=== PATIENT | male | born 1955 | race Caucasian/White ===

== ENCOUNTER 2018-09-27 12:23 | Inpatient (IN) | payer OTHER, SELFPAY ==
[2018-09-27] VITALS (16 sets, daily range): BP systolic 109–159; BP diastolic 69–102; PULSE 70–97; RESP 17–24; TEMP 36.3–36.8; O2SAT 84–95; BMI 35.2; BMI 34.2; BMI 34.3
--- NOTE | 2018-09-27 12:34 | EKG12_ITS ---
Test Reason : FLU LIKE SYMPTOMS Blood Pressure : / mmHG Vent. Rate : 091 BPM Atrial Rate : 091 BPM P-R Int : 138 ms QRS Dur : 092 ms QT Int : 394 ms P-R-T Axes : 048 036 052 degrees QTc Int : 484 ms Sinus rhythm with Premature atrial complexes with Aberrant conduction Low voltage QRS ST & T wave abnormality, consider anterior ischemia Prolonged QT Abnormal ECG Confirmed by FLORIN WATSON ([id number]), slot editor MICKEY HARMON ([id number]) on 09/30/2018 4:44:41 PM Referred By: ALLY Confirmed By:FLORIN WATSON
--- NOTE | 2018-09-27 12:35 | ED.VISSUMM ---
- ER Visit Summary Date of Service: 09/27/18 Chief Complaint: Shortness of breath, cough History of Present Illness: The patient is a 63 M who states that he has the flu. He states for the past 6 weeks he has not been feeling well. He has had a cough that is been nonproductive. He has been feeling short of breath. He has been taking clarithromycin and is almost done with this course and then was supposed to start cefuroxime. He denies fevers. He does feel weak overall. He is a non-smoker. He has no history of COPD. He does wear CPAP at night but does not wear home oxygen. He did get a flu shot this year. Physical Examination: Vital signs reviewed. His pulse ox was 87% on room air in triage. HEENT exam unremarkable. Heart is regular rate and rhythm without murmurs. Lungs are clear to auscultation. Abdomen is soft and nontender. Extremities reveal no edema. Skin exam normal. Neurologic exam normal. Test Results: EKG is normal sinus rhythm with a rate of 91. Multiple PVCs noted. Nonspecific ST and T wave changes noted. Chest x-ray reveals evidence of CHF. No infiltrates. Hemoglobin 16.9, glucose 160. Troponin normal. Emergency Department Course and Treatment: The patient was given an albuterol treatment. He was hypoxic on room air down to 84%. He has no history of any lung pathology. He does have CHF and takes Lasix. This is likely the cause of his issues. I will give him 1 dose of Lasix IV here. The case was discussed with the hospitalist for admission Treatment Plan: Admit to PCU for diuresis Disposition: Admit Impression: CHF exacerbation, hypoxia This note was generated with [employer] dictation software. It may contain incorrect words, spelling, and punctuation that were not noted in review of the chart prior to signing ED Disposition - Plan for ED Patient: Referrals: NOT,DEFINED [NON-STAFF] -
[2018-09-27] MEDS: Albuterol 2.5 MG/3 ML VIAL.NEB. INHALATION (12:42)
[2018-09-27 12:53] LABS: Absolute Lymphocyte Count 1.25 X10^3/ul (0.83-4.51); Absolute Neutrophil Count 3.3 X10^3/uL (2.0-7.7); Basophil# 0.02 X10^3/uL; Basophil% 0.4 % (0-1); Eosinophil# 0.18 X10^3/uL; Eosinophils% 3.4 % (0-5); Hematocrit 52.2 % (40-54); Hemoglobin 16.9 g/dl (13.0-16.5); Lymphocyte # 1.25 X10^3/ul (4.0); Lymphocyte % 23.5 % (19-41); Mean Corp Hgb Conc 32.4 g/gl (32-36); Mean Corpuscular Hgb 34.3 pg (27.0-32.0); Mean Corpuscular Volume 106.1 fL (80-94); Mean Platelet Vol. 10.6 fl (6.2-12.0); Monocyte# 0.61 X10^3/uL; Monocyte% 11.4 % (0-10); Neutrophil # 3.27 X10^3/uL (2.7-7.7); Neutrophil % 61.3 % (47-70); Platelet Count 175 K/mm3 (150-450); RBC Distribution Width CV 13.2 % (11.6-14.6); Red Blood Count 4.92 M/mm3 (4.6-6.2); White Blood Count 5.3 K/mm3 (4.4-11.0)
[2018-09-27 12:57] LABS: POSITIVE COUNT NO; POSITIVE DIFFERENTIAL NO; POSITIVE MORPHOLOGY NO
--- NOTE | 2018-09-27 13:04 | RAD_ITS ---
STUDY: X-RAY CHEST REASON FOR EXAM: Male, 63 years old. Cough, shortness of breath and dyspnea. TECHNIQUE: PA and lateral views of the chest. COMPARISON: None. FINDINGS: EKG electrodes are seen. There is elevation of the anterior aspect of the right hemidiaphragm. Vascular congestion and mild degree of CHF. There is no demonstrated pleural abnormality. There is moderate cardiac enlargement. Normal mediastinum and niurka. Normal visualized pulmonary arteries. There is atherosclerotic tortuosity of the aortic arch and descending thoracic aorta. Normal visualized thoracic spine. Normal visualized ribs, clavicles, and shoulders. There is no demonstrated abnormality of the visualized soft tissue structures of the upper abdomen. RAD/Chest PA and Lateral IMPRESSION: Moderate degree of cardiomegaly. Findings in keeping with the vascular congestion and mild CHF. Electronically Signed: Galen Duran, at 13:22 EDT , Service support ,
[2018-09-27 13:10] LABS: Anion Gap 8 (5-15); BUN 13 mg/dL (7-18); BUN/Creat Ratio 11.5 RATIO (10-20); Calcium,Total 8.5 mg/dL (8.5-10.1); Chloride 110 mmol/L (98-107); Creatinine, Serum 1.13 mg/dL (0.70-1.30); EST Glomerular Filtration Rate 70 mL/min (>60); Est Glom Filt Rate - Afr Amer 84 mL/min (>60); Estimated Creatinine Clearance 64.73 ml/min; Glucose 160 mg/dL (74-106); Potassium 3.9 mmol/L (3.5-5.1); Sodium Level 142 mmol/L (136-145)
--- NOTE | 2018-09-27 13:14 | NURSING ---
NO OLD EKGS
--- NOTE | 2018-09-27 13:47 | NURSING ---
PCU CHF EXAC LILO
[2018-09-27] MEDS: Furosemide 40 MG/4 ML Vial IV ×2 (13:58→18:00)
--- NOTE | 2018-09-27 14:14 | PCM.HP.STD ---
Problem List (1) CHF exacerbation Status: Acute (2) Hypertension Status: Chronic (3) Coronary artery disease Status: Chronic (4) Acute bronchitis Status: Acute History of Present Illness Date of Admission: 09/27/18 Chief Complaint: Shortness of breath and URI symptoms The patient is a 63 year old M, ex-smoker quit about 12 years ago came to ED with URI symptoms along with shortness of breath for past 6 weeks. Patient has not been feeling well along with flulike symptoms, cough sore throat, postnasal drip and sinus congestion. Gradually started also feeling shortness of breath. He completed clarithromycin about 1 week course and then was supposed to start cefuroxime but did not start yet. Patient denies history of COPD and CHF but never had formal PFT test. History of sleep apnea and wears CPAP. He has history of coronary artery disease status post 2 stents and was getting cardiology care in [place] but now switching to Dr. Browne. In ED, he was found hypoxic, 84% on room air mild short of breath on conversation mild tachypneic RR 19/min. Subsequently pulse ox 92% on 6 L of oxygen. [] Past Medical History Past Medical History (Chronic Problems): Chronic Problems Hypertension (Chronic) Coronary artery disease (Chronic) Allergies No Known Allergies Allergy (Verified 09/27/18 12:25) Home Medications: Ambulatory Orders Medication Instructions Recorded Aspirin [Aspirin EC] 81 mg PO DAILY 09/27/18 Atorvastatin Calcium [Lipitor] 40 mg PO QHS 09/27/18 Cefuroxime Axetil [Cefuroxime] 1 tab PO BID 09/27/18 Clarithromycin 1 tab PO BID 09/27/18 Clopidogrel Bisulfate [Clopidogrel] 75 mg PO DAILY 09/27/18 Codeine Phosphate/Guaifenesin 5 ml PO Q6H PRN PRN 09/27/18 [Guaiatussin AC Liquid] Furosemide [Lasix] 20 mg PO DAILY 09/27/18 Lisinopril [Zestril] 10 mg PO DAILY 09/27/18 Metoprolol Tartrate [Lopressor 25 mg PO BID 09/27/18 (Beta Tali)] Smoking Status: Former smoker - *Family History Paternal History Items: Hypertension Review of Systems Constitutional: Reports: Chills, Fever. Denies: Weight Change HEENT: Reports: Nasal Congestion, Post Nasal Drip, Sinus Congestion, Sinus Drainage, Sore Throat. Denies: Head Aches Cardiovascular: Reports: Edema. Denies: Chest Pain, Chest Pressure, Chest Tightness, Palpitations Respiratory: Reports: Cough, Shortness of Breath, Shortness of breath at rest, Shortness of breath upon exertion, Sputum production Gastrointestinal: Denies: Abdominal Pain, Nausea, Vomiting Genitourinary: Denies: Dysuria Musculoskeletal: Denies: Joint Pain, Joint Tenderness Skin: Denies: Rash, Wounds Neurological: Denies: Numbness, Tingling, Focal weakness Psychiatric: Denies: Anxiety, Depression, Homicidal Ideations, Suicidal Ideations Hematologic/ Lymphatic: Denies: Easy Bruising, Easy Bleeding VTE Information - Inpt Only VTE Present on Admission: No VTE Mechan Device Prophylaxis: None VTE Pharm Prophylaxis ordered?: Yes Patient Problems: Active and Suspected Problems CHF exacerbation (Acute) Acute bronchitis (Acute) - Physical Exam General: Alert, Oriented x3, Cooperative HEENT: Atraumatic, PERRLA, EOMI, Normocephalic Neck: Supple, No JVD, Negative Carotid Bruits Lungs: Diminished - Air entry is diminished bilaterally., Rales - Bilateral fine rales present in lung bases, Short of Breath Cardiovascular: Regular rate, Regular Rhythm, Normal S1, Normal S2, No murmurs Abdomen: Bowel Sounds Present, Soft, Non Tender, Non-Distended Extremities: Capillary Refill Less than 3 Seconds, Edema Skin: No rashes, No breakdown Musculoskeletal: No Tenderness to Palpation of Joints or Extremities, Arthritic Changes Neurological: Cranial nerves II-XII grossly intact, Deep Tendon Reflexes 2+/4 and Symmetrical, Neuro grossly intact, Motor Exam 5/5 strength throughout Psych/Mental Status: Normal Affect, Appropriate Vital Signs Temp Pulse Resp BP Pulse Ox 98 F 87 17 130/93 H 91 09/27/18 14:00 09/27/18 14:00 09/27/18 14:00 09/27/18 14:00 09/27/18 14:00 Oxygen Flow Rate (L/min) 6 Oxygen Delivery Method Nasal Cannula Weight: 231 lb 7.766 oz Body Mass Index (BMI) 35.2 Microbiology Past 72 Hours 09/27/18 12:45 Influenza Types A,B Direct FA (NANCY) - Final Mucosa - Nose Laboratory Tests Past 24 Hrs 09/27/18 09/27/18 12:40 12:40 WBC 5.3 RBC 4.92 Hgb 16.9 H Hct 52.2 MCV 106.1 H MCH 34.3 H MCHC 32.4 RDW 13.2 RDW Differential 51.0 H Plt Count 175 MPV 10.6 Immature Gran % (Auto) 0.000 Neut % (Auto) 61.3 Lymph % (Auto) 23.5 [place] % (Auto) 11.4 H Eos % (Auto) 3.4 Baso % (Auto) 0.4 Absolute Neuts (auto) 3.3 Absolute Lymphs (auto) 1.25 Total Counted Not Reportable Sodium 142 Potassium 3.9 Chloride 110 H Carbon Dioxide 24.0 Anion Gap 8 BUN 13 Creatinine 1.13 Estim Creat Clear Calc 64.73 Est GFR (MDRD) Af Amer 84 Est GFR (MDRD) Non-Af 70 BUN/Creatinine Ratio 11.5 Glucose 160 H Calcium 8.5 Troponin I < 0.015 Assessment/Plan All Active Problems CHF exacerbation (Acute) Acute bronchitis (Acute) The patient is a 63 year old M, ex-smoker quit about 12 years ago came to ED with URI symptoms along with shortness of breath for past 6 weeks. Patient has not been feeling well along with flulike symptoms, cough sore throat, postnasal drip and sinus congestion. Gradually started also feeling shortness of breath. He completed clarithromycin about 1 week course and then was supposed to start cefuroxime but did not start yet. Patient denies history of COPD and CHF but never had formal PFT test. History of sleep apnea and wears CPAP. He has history of coronary artery disease status post 2 stents and was getting cardiology care in [place] but now switching to Dr. Browne. In ED, he was found hypoxic, 84% on room air mild short of breath on conversation mild tachypneic RR 19/min. Subsequently pulse ox 92% on 6 L of oxygen. 1. Acute hypoxic respiratory failure most probably from CHF exacerbation or acute bronchitis: Patient is being admitted in PCU. Oxygen therapy. Continue CPAP at night. 2. CHF exacerbation; type and etiology unclear but probably ischemic cardiomyopathy: Chest x-ray suggestive of central congestion. No echo in our system. Patient is on Lasix 20 mg daily at home. Increased to 40 mg twice daily and titrate as per volume status. Monitor intake and output. BNP ordered. 2D echo ordered. Patient has appoint with Dr. Browne on 10/31/2018. 3. Coronary artery status post stents: Patient denies chest pain. Continue cardiac medications\ 4. Acute bronchitis: Chest x-ray does not show typical features of pneumonia. Respiratory panel, urinary antigens, sputum culture if possible or ordered. Patient to start cefuroxime as prescribed by PCP 500 mg twice daily for 5 days. If workup is negative, can discontinue it. 5. Other comorbidities include hypertension, hyperglycemia: Glucose is 160. A1c tomorrow a.m. Blood pressure is controlled. 6. Possible COPD and active smoker: Patient advised formal PFT as an outpatient. Patient has about 11/2 pack of cigarettes for 30-35 years. DVT prophylaxis: On Lovenox 40 g subcu daily. Discontinue if platelet count drops less than 50,000 or hemoglobin less than 8 g% Clinical Impression(s) from Imaging Studies Chest X-Ray 09/27/18 13:04 IMPRESSION: Moderate degree of cardiomegaly. Findings in keeping with the vascular congestion and mild CHF. Microbiology Past 72 Hours 09/27/18 12:45 Mucosa - Nose Influenza Types A,B Direct FA (NANCY) - Final Laboratory Results 09/27/18 12:40: WBC 5.3, RBC 4.92, Hgb 16.9 H, Hct 52.2, MCV 106.1 H, MCH 34.3 H, MCHC 32.4, RDW 13.2, RDW Differential 51.0 H, Plt Count 175, MPV 10.6, Immature Gran % (Auto) 0.000, Neut % (Auto) 61.3, Lymph % (Auto) 23.5, Gaston % (Auto) 11.4 H, Eos % (Auto) 3.4, Baso % (Auto) 0.4, Absolute Neuts (auto) 3.3, Absolute Lymphs (auto) 1.25, Total Counted Not Reportable 09/27/18 12:40: Sodium 142, Potassium 3.9, Chloride 110 H, Carbon Dioxide 24.0, Anion Gap 8, BUN 13, Creatinine 1.13, Estim Creat Clear Calc 64.73, Est GFR (MDRD) Af Amer 84, Est GFR (MDRD) Non-Af 70, BUN/Creatinine Ratio 11.5, Glucose 160 H, Calcium 8.5, Troponin I < 0.015 Code Visit Inpatient E&M: 23978 Init Hosp L3
--- NOTE | 2018-09-27 15:10 | EKG12_ITS ---
Test Reason : SOB/ADMISSION EKG Blood Pressure : / mmHG Vent. Rate : 068 BPM Atrial Rate : 068 BPM P-R Int : 138 ms QRS Dur : 092 ms QT Int : 458 ms P-R-T Axes : 045 014 040 degrees QTc Int : 487 ms Sinus rhythm with Premature atrial complexes with Aberrant conduction Low voltage QRS T wave abnormality, consider anterior ischemia Prolonged QT Abnormal ECG When compared with ECG of 27-SEP-2018 12:45, MANUAL COMPARISON REQUIRED, DATA IS UNCONFIRMED Confirmed by JHONNY MIXON, JOSEFINA ([id number]), assistant editor MICKEY HARMON ([id number]) on 10/02/2018 1:22:17 PM Referred By: DR NAGY Confirmed By:JOSEFINA BARRY MD
--- NOTE | 2018-09-27 15:10 | ECHOD_ITS ---
Reason For Study: CHF exacerbation Procedure This was a 2D Doppler, Color Flow transthoracic echocardiogram. The study was technically difficult. Did not use Definity due to increased PAP. Exam performed portable in patient room. Left Ventricle Mild concentric left ventricular hypertrophy. The estimated ejection fraction is 45-50 %. Stage 1 diastolic dysfunction. There is mild to moderate global hypokinesis of the left ventricle. Right Ventricle Severely dilated right ventricle. Moderate global right ventricular systolic dysfunction. Atria Normal left atrium. The right atrium is moderately enlarged. Mitral Valve The mitral valve is structurally normal. No prolapse or stenosis seen. Tricuspid Valve Normal tricuspid valve. Trivial tricuspid valve insufficiency. Right ventricular systolic pressure estimated to be 70 mmHg. Severe pulmonary hypertension. Aortic Valve Normal aortic valve. Trisinus/trileaflet aortic valve. Pulmonic Valve Normal pulmonic valve. Mild (1+) pulmonic valve insufficiency. Great Vessels Normal aortic root. Normal arch. Normal inferior vena cava. Inferior vena cava collapse with sniff. Pericardium/Pleural No pericardial effusion. Medication Performed a rapid injection of agitated mix of 9 cc saline and 1cc air to assess for atrial septal defect. MMode/2D Measurements & Calculations LVIDd: 5.2 cm IVSd: 1.5 cm Ao root diam: 3.3 cm LVIDs: 3.5 cm LVPWd: 0.67 cm RVDd: 5.1 cm FS: 33.0 % LAV(MOD-bp): 40.5 ml LA A4 area: 13.7 cm2 LA dimension(2D): 3.9 cm LAV(MOD-bp) Indexed: 18.7 ml/m2 LAV(MOD-sp2): 52.2 ml LAV(MOD-sp4): 30.3 ml RA A4 area: 21.1 cm2 Doppler Measurements & Calculations MV E max prakash: 54.1 cm/sec Lat Peak E' Prakash: 5.0 cm/sec Med Peak E' Prakash: 5.0 cm/sec MV A max prakash: 81.9 cm/sec E/E' lat: 10.7 E/E' med: 10.9 MV E/A: 0.66 Ao V2 max: 96.0 cm/sec LV V1 max: 86.0 cm/sec PA V2 max: 90.4 cm/sec Ao max P.7 mmHg LV V1 max P.0 mmHg Ao V2 mean: 69.5 cm/sec Ao mean P.1 mmHg Ao V2 VTI: 17.8 cm PI end-d prakash: 156.8 cm/sec TR max prakash: 403.3 cm/sec TR max P.0 mmHg Interpretation Summary Mild concentric left ventricular hypertrophy. The estimated ejection fraction is 45-50 %. Difficult to assess true LV function given frequent PVCs. Stage 1 diastolic dysfunction. There is mild to moderate global hypokinesis of the left ventricle. Severely dilated right ventricle. Moderate global right ventricular systolic dysfunction. The right atrium is moderately enlarged. Trivial tricuspid valve insufficiency. Right ventricular systolic pressure estimated to be 70 mmHg. Severe pulmonary hypertension. The study was technically difficult. There is no comparison study available. Ordering Physician: Gilberto Fortune Referring Physician: Olivier Vanegas Performed By: Merissa Villafana RDCS, RVT
[2018-09-27 16:06] LABS: BNP,B-Type NATRIURETIC PEPTIDE 330.3 pg/mL (0-100)
--- NOTE | 2018-09-27 16:15 | CASEMGMT ---
RN CM Assessment Introduced role of RN CM to patient. Patient is alert, oriented and able to participate in RN CM Assessment. Care providers, pharmacy, and demographics verified. Presentation: CC: Flu symptoms x6 weeks. Cough, SOB, taking Clarithromycin, supposed to start Cefuroxime. PCP: Dr Olivier Vanegas Specialists: None [facility]erred [facility]acy: [facility]. States is supposed to transfer to another one out in [place] but cannot recall name. Insurance: MMO Prescription Benefit: Yes LNOK: Brother Johnathon Gallardo #[phone]. States Unsure if has a POA/LW. Living Arrangements: Lives alone in a SS Home, no steps to enter. Independent with ambulation and ADL's. Transportation: Patient drives and droves self to hospital, plans on driving on DC DME: Cpap- [employer] HHC: None SNF: None DC PLAN: DC Home with possible Home O2. Goal: Home
[2018-09-27 16:40] LABS: Color, Urine Yellow (Yellow); Glucose, Dipstick Normal (Normal); Ketone-Dipstick Negative (Negative); Leukocyte Esterase-Dipstick Negative /ul (Negative); Nitrite-Dipstick Negative (Negative); Occult Blood-Urine Negative /ul (Negative); Protein-Dipstick Negative (Negative); Urine Bilirubin Dipstick Negative (Negative); Urine Clarity Clear (Clear); Urine Urobilinogen Normal (Normal); Urine pH 6.5 (5.0 - 8.0)
[2018-09-27] MEDS: Lisinopril 10 MG Tablet PO (16:45)
[2018-09-27] MEDS: Clopidogrel Bisulfate 75 MG Tablet PO (16:45)
[2018-09-27] MEDS: guaiFENesin 1,200 MG Tablet 1200 MG PO ×2 (16:45→22:56)
[2018-09-27] MEDS: CEFUROXIME AXETIL 250 MG TABLET 500 MG PO ×3 (16:45→22:55)
[2018-09-27] MEDS: Metoprolol Tartrate 25 MG Tablet PO ×2 (16:45→22:55)
[2018-09-27] MEDS: 0.9% NaCl Peripheral Flush Adult/Peds IV (16:46)
[2018-09-27] MEDS: Aspirin E.C. 81 MG Tablet PO (18:00)
[2018-09-27] MEDS: Atorvastatin Calcium 40 MG Tablet PO (22:55)
[2018-09-28] VITALS (22 sets, daily range): BP systolic 100–109; BP diastolic 53–71; PULSE 37–109; RESP 15–22; TEMP 36.5–36.8; O2SAT 90–97
[2018-09-28 06:34] LABS: Absolute Lymphocyte Count 1.78 X10^3/ul (0.83-4.51); Basophil# 0.03 X10^3/uL; Basophil% 0.4 % (0-1); Eosinophil# 0.24 X10^3/uL; Eosinophils% 3.5 % (0-5); Hematocrit 52.6 % (40-54); Hemoglobin 17.1 g/dl (13.0-16.5); Lymphocyte # 1.78 X10^3/ul (4.0); Lymphocyte % 26.2 % (19-41); Mean Corp Hgb Conc 32.5 g/gl (32-36); Mean Corpuscular Hgb 34.8 pg (27.0-32.0); Mean Corpuscular Volume 107.1 fL (80-94); Monocyte# 0.75 X10^3/uL; Neutrophil # 3.99 X10^3/uL (2.7-7.7); Neutrophil % 58.8 % (47-70); Platelet Count 176 K/mm3 (150-450); RBC Distribution Width CV 13.2 % (11.6-14.6); RBC Distribution Width SD 51.4 fl (35.1-43.9); Red Blood Count 4.91 M/mm3 (4.6-6.2); White Blood Count 6.8 K/mm3 (4.4-11.0)
[2018-09-28 06:35] LABS: POSITIVE COUNT NO; POSITIVE DIFFERENTIAL NO; POSITIVE MORPHOLOGY NO
[2018-09-28 07:02] LABS: Anion Gap 8 (5-15); BUN 19 mg/dL (7-18); BUN/Creat Ratio 15.3 RATIO (10-20); Calcium,Total 8.9 mg/dL (8.5-10.1); Chloride 105 mmol/L (98-107); Cholesterol 90 mg/dL (200); Creatinine, Serum 1.24 mg/dL (0.70-1.30); EST Glomerular Filtration Rate 63 mL/min (>60); Est Glom Filt Rate - Afr Amer 76 mL/min (>60); Estimated Creatinine Clearance 58.99 ml/min; Glucose 90 mg/dL (74-106); High Density Lipoprotein 40 mg/dL; Sodium Level 142 mmol/L (136-145); Triglycerides 77 mg/dL; Very Low Density Lipoprotein 15 mg/dL (5-40)
[2018-09-28 08:56] LABS: Hemoglobin A1c 5.5 % (4.2-6.3)
[2018-09-28] MEDS: Clopidogrel Bisulfate 75 MG Tablet PO (10:07)
[2018-09-28] MEDS: Aspirin E.C. 81 MG Tablet PO (10:07)
[2018-09-28] MEDS: Lisinopril 10 MG Tablet PO (10:07)
[2018-09-28] MEDS: guaiFENesin 1,200 MG Tablet 1200 MG PO ×2 (10:07→21:16)
--- NOTE | 2018-09-28 11:29 | EKG12_ITS ---
Test Reason : RHYTHM CHANGE Blood Pressure : / mmHG Vent. Rate : 083 BPM Atrial Rate : 083 BPM P-R Int : 138 ms QRS Dur : 092 ms QT Int : 422 ms P-R-T Axes : 041 030 056 degrees QTc Int : 495 ms Sinus rhythm with Premature atrial complexes with Aberrant conduction Low voltage QRS ST & T wave abnormality, consider anterolateral ischemia Prolonged QT Abnormal ECG When compared with ECG of 27-SEP-2018 21:20, MANUAL COMPARISON REQUIRED, DATA IS UNCONFIRMED Confirmed by JHONNY MIXON, JOSEFINA ([id number]), greeting card editor MICKEY HARMON ([id number]) on 10/02/2018 1:21:31 PM Referred By: SEBAS Confirmed By:JOSEFINA BARRY MD
--- NOTE | 2018-09-28 12:54 | PCM.PROGNOTE ---
Patient Problems: Active and Suspected Problems CHF exacerbation (Acute) Acute bronchitis (Acute) Subjective: Patient seen and examined. Reports improvement in breathing. Denies chest pain, palpitations, dizziness/lightheadedness. - Physical Exam General: Alert, Oriented x3, Cooperative HEENT: Atraumatic, PERRLA, EOMI, Normocephalic Neck: Supple, No JVD, Negative Carotid Bruits Lungs: Diminished, Rales Cardiovascular: Regular rate, Regular Rhythm, Normal S1, Normal S2, No murmurs, - - Frequent PVCs Abdomen: Bowel Sounds Present, Soft, Non Tender, Non-Distended, Obese Extremities: No clubbing, No cyanosis, Capillary Refill Less than 3 Seconds, Edema - Bilateral lower extremity, nonpitting Skin: No rashes, No breakdown Musculoskeletal: No Tenderness to Palpation of Joints or Extremities Neurological: Cranial nerves II-XII grossly intact, Neuro grossly intact Psych/Mental Status: Normal Affect, Appropriate Vital Signs Temp Pulse Resp BP Pulse Ox 97.8 F 84 18 101/68 90 09/28/18 11:17 09/28/18 11:23 09/28/18 11:17 09/28/18 11:17 09/28/18 11:25 Oxygen Flow Rate (L/min) 5.5 Oxygen Delivery Method Nasal Cannula Weight: 225 lb 8.526 oz Body Mass Index (BMI) 34.2 Intake and Output for Last 24 Hours 09/26/18 09/27/18 09/28/18 23:59 23:59 23:59 Intake Total 680 / 680 590 / 590 Output Total 1750 / 1750 475 / 475 Balance -1070 / -1070 115 / 115 Microbiology Past 72 Hours 09/27/18 15:45 Legionella Antigen - Final Urine, Clean Catch 09/27/18 15:45 Streptococcus pneumoniae Antigen (M - Final Urine, Clean Catch 09/27/18 12:45 Influenza Types A,B Direct FA (NANCY) - Final Mucosa - Nose Laboratory Tests Past 24 Hrs 09/27/18 09/27/18 09/27/18 12:40 12:40 12:40 WBC 5.3 RBC 4.92 Hgb 16.9 H Hct 52.2 MCV 106.1 H MCH 34.3 H MCHC 32.4 RDW 13.2 RDW Differential 51.0 H Plt Count 175 MPV 10.6 Immature Gran % (Auto) 0.000 Neut % (Auto) 61.3 Lymph % (Auto) 23.5 [place] % (Auto) 11.4 H Eos % (Auto) 3.4 Baso % (Auto) 0.4 Absolute Neuts (auto) 3.3 Absolute Lymphs (auto) 1.25 Total Counted Not Reportable Sodium 142 Potassium 3.9 Chloride 110 H Carbon Dioxide 24.0 Anion Gap 8 BUN 13 Creatinine 1.13 Estim Creat Clear Calc 64.73 Est GFR (MDRD) Af Amer 84 Est GFR (MDRD) Non-Af 70 BUN/Creatinine Ratio 11.5 Glucose 160 H Hemoglobin A1c Calcium 8.5 Troponin I < 0.015 B-Natriuretic Peptide 330.3 H Triglycerides Cholesterol LDL Cholesterol VLDL Cholesterol HDL Cholesterol TSH Urine Color Urine Clarity Urine pH Ur Specific [place] Urine Protein Urine Glucose (UA) Urine Ketones Urine Occult Blood Urine Nitrite Urine Bilirubin Urine Urobilinogen Ur Leukocyte Esterase 09/27/18 09/27/18 09/28/18 15:45 18:31 00:24 WBC RBC Hgb Hct MCV MCH MCHC RDW RDW Differential Plt Count MPV Immature Gran % (Auto) Neut % (Auto) Lymph % (Auto) [place] % (Auto) Eos % (Auto) Baso % (Auto) Absolute Neuts (auto) Absolute Lymphs (auto) Total Counted Sodium Potassium Chloride Carbon Dioxide Anion Gap BUN Creatinine Estim Creat Clear Calc Est GFR (MDRD) Af Amer Est GFR (MDRD) Non-Af BUN/Creatinine Ratio Glucose Hemoglobin A1c Calcium Troponin I 0.036 0.028 B-Natriuretic Peptide Triglycerides Cholesterol LDL Cholesterol VLDL Cholesterol HDL Cholesterol TSH Urine Color Yellow Urine Clarity Clear Urine pH 6.5 Ur Specific [place] 1.010 Urine Protein Negative Urine Glucose (UA) Normal Urine Ketones Negative Urine Occult Blood Negative Urine Nitrite Negative Urine Bilirubin Negative Urine Urobilinogen Normal Ur Leukocyte Esterase Negative 09/28/18 09/28/18 09/28/18 05:36 05:36 05:36 WBC 6.8 RBC 4.91 Hgb 17.1 H Hct 52.6 MCV 107.1 H MCH 34.8 H MCHC 32.5 RDW 13.2 RDW Differential 51.4 H Plt Count 176 MPV 11.0 Immature Gran % (Auto) 0.100 Neut % (Auto) 58.8 Lymph % (Auto) 26.2 [place] % (Auto) 11.0 H Eos % (Auto) 3.5 Baso % (Auto) 0.4 Absolute Neuts (auto) 4.0 Absolute Lymphs (auto) 1.78 Total Counted Not Reportable Sodium 142 Potassium 4.0 Chloride 105 Carbon Dioxide 29.0 Anion Gap 8 BUN 19 H Creatinine 1.24 Estim Creat Clear Calc 58.99 Est GFR (MDRD) Af Amer 76 Est GFR (MDRD) Non-Af 63 BUN/Creatinine Ratio 15.3 Glucose 90 Hemoglobin A1c 5.5 Calcium 8.9 Troponin I B-Natriuretic Peptide Triglycerides 77 Cholesterol 90 LDL Cholesterol 35 VLDL Cholesterol 15 HDL Cholesterol 40 TSH 0.70 Urine Color Urine Clarity Urine pH Ur Specific [place] Urine Protein Urine Glucose (UA) Urine Ketones Urine Occult Blood Urine Nitrite Urine Bilirubin Urine Urobilinogen Ur Leukocyte Esterase Medical Necessity - Tobacco Use Smoking Status: Former smoker Assessment/Plan All Active Problems CHF exacerbation (Acute) Acute bronchitis (Acute) 1. Acute hypoxic respiratory failure secondary to CHF exacerbation and acute bronchitis-continue supplement oxygen to maintain O2 at or above 90%. Walking pulse ox prior to discharge. 2. Acute on chronic combined systolic and diastolic CHF-chest x-ray admission consistent with CHF. BNP mildly elevated. Strict I&O. Daily weight. IV Lasix 40 mg twice daily. Continue lisinopril regimen. Vladislav wraps bilateral lower extremities. Echocardiogram shows an EF of 45-50%, stage I diastolic dysfunction, frequent PVCs, mild to moderate global hypokinesis of the left ventricle, severely dilated right ventricle, moderate global right ventricular systolic dysfunction, RVSP estimated to be 70 mmHg. 3. Suspected viral URI/acute viral bronchitis-he recently completed outpatient antibiotics with no improvement. Influenza testing negative. Respiratory panel negative. Chest x-ray consistent with CHF/vascular congestion. Urine for strep and Legionella negative. No leukocytosis, afebrile. Continue Mucinex 1200 mg p.o. twice daily. Albuterol DuoNeb aerosols. Prednisone 40 mg p.o. times 5 days. Do not feel further antibiotics are necessary at this point and will discontinue. Patient will need walking pulse ox prior to discharge. Continue supplement oxygen to maintain O2 at or above 90%. 3. Intermittent bradycardia/frequent PVCs/inverted T wave on EKG/NVT-no previous EKG for comparison. Records requested from patient's primary structural steel engineer. Patient denies chest pain. He denies shortness of breath prior to recent URI. Monitor telemetry. Check mg. Cardiology consult placed. 4. CAD status post stents-continue aspirin, statin, Plavix, beta-francisca. Previously followed with structural steel engineer at [facility], Dr. Gao. Patient is switching to Dr. Browne and has upcoming appointment 10/31/18. Patient reports his stents were placed approximately 4 years ago. He reports he had a normal stress test about 1 year ago. 5. Hypertension-stable, continue home metoprolol, lisinopril, furosemide regimen. 6. Obstructive sleep apnea-continue CPAP nightly. 7. History of tobacco use-suspect patient has underlying COPD given extensive smoking history. Recommend outpatient follow-up with pulmonary medicine for pulmonary function testing. 8. Obesity-encouraged diet lifestyle modifications. DVT prophylaxis- Lovenox razia This patient was seen by JUNIOR Ureña under the supervision of Dr. Broussard.
--- NOTE | 2018-09-28 13:26 | NURSING ---
student nurse charting reviewed
--- NOTE | 2018-09-28 13:29 | PN_ITS ---
Patient Problems: Active and Suspected Problems CHF exacerbation (Acute) Acute bronchitis (Acute) Subjective: Patient seen and examined. Reports improvement in breathing. Denies chest pain, palpitations, dizziness/lightheadedness. - Physical Exam General: Alert, Oriented x3, Cooperative HEENT: Atraumatic, PERRLA, EOMI, Normocephalic Neck: Supple, No JVD, Negative Carotid Bruits Lungs: Diminished, Rales Cardiovascular: Regular rate, Regular Rhythm, Normal S1, Normal S2, No murmurs, - - Frequent PVCs Abdomen: Bowel Sounds Present, Soft, Non Tender, Non-Distended, Obese Extremities: No clubbing, No cyanosis, Capillary Refill Less than 3 Seconds, Edema - Bilateral lower extremity, nonpitting Skin: No rashes, No breakdown Musculoskeletal: No Tenderness to Palpation of Joints or Extremities Neurological: Cranial nerves II-XII grossly intact, Neuro grossly intact Psych/Mental Status: Normal Affect, Appropriate Vital Signs Temp Pulse Resp BP Pulse Ox 97.8 F 84 18 101/68 90 09/28/18 11:17 09/28/18 11:23 09/28/18 11:17 09/28/18 11:17 09/28/18 11:25 Oxygen Flow Rate (L/min) 5.5 Oxygen Delivery Method Nasal Cannula Weight: 225 lb 8.526 oz Body Mass Index (BMI) 34.2 Intake and Output for Last 24 Hours 09/26/18 09/27/18 09/28/18 23:59 23:59 23:59 Intake Total 680 / 680 590 / 590 Output Total 1750 / 1750 475 / 475 Balance -1070 / -1070 115 / 115 Microbiology Past 72 Hours 09/27/18 15:45 Legionella Antigen - Final Urine, Clean Catch 09/27/18 15:45 Streptococcus pneumoniae Antigen (M - Final Urine, Clean Catch 09/27/18 12:45 Influenza Types A,B Direct FA (NANCY) - Final Mucosa - Nose Laboratory Tests Past 24 Hrs 09/27/18 09/27/18 09/27/18 12:40 12:40 12:40 WBC 5.3 RBC 4.92 Hgb 16.9 H Hct 52.2 MCV 106.1 H MCH 34.3 H MCHC 32.4 RDW 13.2 RDW Differential 51.0 H Plt Count 175 MPV 10.6 Immature Gran % (Auto) 0.000 Neut % (Auto) 61.3 Lymph % (Auto) 23.5 [place] % (Auto) 11.4 H Eos % (Auto) 3.4 Baso % (Auto) 0.4 Absolute Neuts (auto) 3.3 Absolute Lymphs (auto) 1.25 Total Counted Not Reportable Sodium 142 Potassium 3.9 Chloride 110 H Carbon Dioxide 24.0 Anion Gap 8 BUN 13 Creatinine 1.13 Estim Creat Clear Calc 64.73 Est GFR (MDRD) Af Amer 84 Est GFR (MDRD) Non-Af 70 BUN/Creatinine Ratio 11.5 Glucose 160 H Hemoglobin A1c Calcium 8.5 Troponin I < 0.015 B-Natriuretic Peptide 330.3 H Triglycerides Cholesterol LDL Cholesterol VLDL Cholesterol HDL Cholesterol TSH Urine Color Urine Clarity Urine pH Ur Specific [place] Urine Protein Urine Glucose (UA) Urine Ketones Urine Occult Blood Urine Nitrite Urine Bilirubin Urine Urobilinogen Ur Leukocyte Esterase 09/27/18 09/27/18 09/28/18 15:45 18:31 00:24 WBC RBC Hgb Hct MCV MCH MCHC RDW RDW Differential Plt Count MPV Immature Gran % (Auto) Neut % (Auto) Lymph % (Auto) [place] % (Auto) Eos % (Auto) Baso % (Auto) Absolute Neuts (auto) Absolute Lymphs (auto) Total Counted Sodium Potassium Chloride Carbon Dioxide Anion Gap BUN Creatinine Estim Creat Clear Calc Est GFR (MDRD) Af Amer Est GFR (MDRD) Non-Af BUN/Creatinine Ratio Glucose Hemoglobin A1c Calcium Troponin I 0.036 0.028 B-Natriuretic Peptide Triglycerides Cholesterol LDL Cholesterol VLDL Cholesterol HDL Cholesterol TSH Urine Color Yellow Urine Clarity Clear Urine pH 6.5 Ur Specific [place] 1.010 Urine Protein Negative Urine Glucose (UA) Normal Urine Ketones Negative Urine Occult Blood Negative Urine Nitrite Negative Urine Bilirubin Negative Urine Urobilinogen Normal Ur Leukocyte Esterase Negative 09/28/18 09/28/18 09/28/18 05:36 05:36 05:36 WBC 6.8 RBC 4.91 Hgb 17.1 H Hct 52.6 MCV 107.1 H MCH 34.8 H MCHC 32.5 RDW 13.2 RDW Differential 51.4 H Plt Count 176 MPV 11.0 Immature Gran % (Auto) 0.100 Neut % (Auto) 58.8 Lymph % (Auto) 26.2 [place] % (Auto) 11.0 H Eos % (Auto) 3.5 Baso % (Auto) 0.4 Absolute Neuts (auto) 4.0 Absolute Lymphs (auto) 1.78 Total Counted Not Reportable Sodium 142 Potassium 4.0 Chloride 105 Carbon Dioxide 29.0 Anion Gap 8 BUN 19 H Creatinine 1.24 Estim Creat Clear Calc 58.99 Est GFR (MDRD) Af Amer 76 Est GFR (MDRD) Non-Af 63 BUN/Creatinine Ratio 15.3 Glucose 90 Hemoglobin A1c 5.5 Calcium 8.9 Troponin I B-Natriuretic Peptide Triglycerides 77 Cholesterol 90 LDL Cholesterol 35 VLDL Cholesterol 15 HDL Cholesterol 40 TSH 0.70 Urine Color Urine Clarity Urine pH Ur Specific [place] Urine Protein Urine Glucose (UA) Urine Ketones Urine Occult Blood Urine Nitrite Urine Bilirubin Urine Urobilinogen Ur Leukocyte Esterase Medical Necessity - Tobacco Use Smoking Status: Former smoker Assessment/Plan All Active Problems CHF exacerbation (Acute) Acute bronchitis (Acute) 1. Acute hypoxic respiratory failure secondary to CHF exacerbation and acute bronchitis-continue supplement oxygen to maintain O2 at or above 90%. Walking pulse ox prior to discharge. 2. Acute on chronic combined systolic and diastolic CHF-chest x-ray admission consistent with CHF. BNP mildly elevated. Strict I&O. Daily weight. IV Lasix 40 mg twice daily. Continue lisinopril regimen. Vladislav wraps bilateral lower extr emities. Echocardiogram shows an EF of 45-50%, stage I diastolic dysfunction, frequent PVCs, mild to moderate global hypokinesis of the left ventricle, severely dilated right ventricle, moderate global right ventricular systolic dysfunction, RVSP estimated to be 70 mmHg. 3. Suspected viral URI/acute viral bronchitis-he recently completed outpatient antibiotics with no improvement. Influenza testing negative. Respiratory panel negative. Chest x-ray consistent with CHF/vascular congestion. Urine for strep and Legionella negative. No leukocytosis, afebrile. Continue Mucinex 1200 mg p.o. twice daily. Albuterol DuoNeb aerosols. Prednisone 40 mg p.o. times 5 days. Do not feel further antibiotics are necessary at this point and will discontinue. Patient will need walking pulse ox prior to discharge. Continue supplement oxygen to maintain O2 at or above 90%. 3. Intermittent bradycardia/frequent PVCs/inverted T wave on EKG/NVT-no previous EKG for comparison. Records requested from patient's primary baby stroller rental clerk. Patient denies chest pain. He denies shortness of breath prior to recent URI. Monitor telemetry. Check mg. Cardiology consult placed. 4. CAD status post stents-continue aspirin, statin, Plavix, beta-francisca. Previously followed with baby stroller rental clerk at [facility], Dr. Gao. Patient is switching to Dr. Browne and has upcoming appointment 10/31/18. Patient re ports his stents were placed approximately 4 years ago. He reports he had a normal stress test about 1 year ago. 5. Hypertension-stable, continue home metoprolol, lisinopril, furosemide regimen. 6. Obstructive sleep apnea-continue CPAP nightly. 7. History of tobacco use-suspect patient has underlying COPD given extensive smoking history. Recommend outpatient follow-up with pulmonary medicine for pulmonary function testing. 8. Obesity-encouraged diet lifestyle modifications. DVT prophylaxis- Lovenox razia This patient was seen by JUNIOR Ureña under the supervision of Dr. Broussard.
[2018-09-28 14:05] LABS: Magnesium 2.2 mg/dL (1.6-2.6)
[2018-09-28] MEDS: predniSONE 20 MG Tablet 40 MG PO (14:19)
[2018-09-28] MEDS: 0.9% NaCl Peripheral Flush Adult/Peds IV (18:19)
[2018-09-28] MEDS: Furosemide 40 MG/4 ML Vial IV (18:19)
[2018-09-28] MEDS: Atorvastatin Calcium 40 MG Tablet PO (21:15)
[2018-09-28] MEDS: Metoprolol Tartrate 25 MG Tablet PO (21:16)
[2018-09-29] VITALS (17 sets, daily range): BP systolic 105–127; BP diastolic 67–74; PULSE 60–83; RESP 12–24; TEMP 36.4–36.6; O2SAT 94–96
[2018-09-29] MEDS: Enoxaparin 40 MG/0.4 ML Syringe SC (06:06)
[2018-09-29] MEDS: predniSONE 20 MG Tablet 40 MG PO (07:58)
[2018-09-29] MEDS: Aspirin E.C. 81 MG Tablet PO (07:58)
[2018-09-29] MEDS: Clopidogrel Bisulfate 75 MG Tablet PO (08:42)
[2018-09-29] MEDS: Metoprolol Tartrate 25 MG Tablet PO ×2 (08:42→21:10)
[2018-09-29] MEDS: guaiFENesin 1,200 MG Tablet 1200 MG PO ×2 (08:42→21:11)
[2018-09-29] MEDS: Furosemide 40 MG/4 ML Vial IV (08:43)
[2018-09-29] MEDS: Lisinopril 10 MG Tablet PO (08:43)
[2018-09-29] MEDS: 0.9% NaCl Peripheral Flush Adult/Peds IV (08:43)
--- NOTE | 2018-09-29 09:17 | PCM.CONS.C ---
Problem List (1) CHF exacerbation Status: Acute (2) Hypertension Status: Chronic (3) Coronary artery disease Status: Chronic Reason for Consult Date of Consultation: 09/29/18 Reason for Consultation: PVCs, congestive heart failure, LV dysfunction, severe pulmonary hypertension obstructive sleep apnea coronary artery disease status post stents History of Present Illness: The patient is a 63 year old M, former patient of Dr. Tompkins's transitioning to Dr. Browne although he has not seen him in the office yet, with a history of hypertension, hypercholesterolemia, coronary artery disease status post angioplasty and stenting at [facility] in 2013 and again in 2014. The specifics of his coronary catheterization are not available as of this writing. The patient was doing well up into the last few days when he developed flulike symptoms with weakness, shortness of breath, productive cough, and fatigue. He denied any chest pain, angina or shortness of breath. He is a previous smoker who quit in 2005 after a [id number] smoking history. Patient is EKG showed normal sinus rhythm with PVCs, and old anterior wall myocardial infarction. In addition the patient had frequent PVCs on his telemetry. A 2D echo was performed yesterday 09/28/18 which showed an EF around 45-50%, frequent PVCs, severe pulmonary hypertension with an RVSP of 70 mmHg, and wall motion abnormalities as described in the report. No previous echoes to compare. On further history the patient denied any chest pain, angina or shortness of breath though he had none with his prior angioplasty and stenting. His main presentation of coronary disease was fatigue and tiredness which gave way to a cardiac workup. Currently the patient is resting comfortably and feels better. Patient is currently remaining on aspirin and Plavix. He has had no change to his medications. [] Past Medical History Allergies/Adverse Reactions: Allergies No Known Allergies Allergy (Verified 09/27/18 12:25) Home Medications: Ambulatory Orders Medication Instructions Recorded Aspirin [Aspirin EC] 81 mg PO DAILY 09/27/18 Atorvastatin Calcium [Lipitor] 40 mg PO QHS 09/27/18 Cefuroxime Axetil [Cefuroxime] 250 mg PO BID 09/27/18 Clarithromycin 500 mg PO BID 09/27/18 Clopidogrel Bisulfate [Clopidogrel] 75 mg PO DAILY 09/27/18 Codeine Phosphate/Guaifenesin 5 ml PO Q6H PRN PRN 09/27/18 [Guaiatussin AC Liquid] Furosemide [Lasix] 20 mg PO DAILY 09/27/18 Lisinopril [Zestril] 10 mg PO DAILY 09/27/18 Metoprolol Tartrate [Lopressor 25 mg PO BID 09/27/18 (Beta Tali)] Past Medical History (Chronic Problems): Chronic Problems Hypertension (Chronic) Coronary artery disease (Chronic) - *Family History Paternal History Items: Hypertension Smoking Status: Former smoker Review of Systems - Review of Systems General: Reports: Fever, Fatigue, Malaise, Weakness, Decreased Appetite. Denies: Night Sweats Cardiovascular: Denies: Chest Discomfort, Shortness of Breath, Orthopnea, PND, Peripheral Edema, Palpitations, Lightheadedness, Dizziness, Near Syncope, Syncope Respiratory: Reports: Cough, Sputum Production. Denies: Hemoptysis Gastrointestinal: Denies: Hematemesis, Hematochezia, Melena Genitourinary: Denies: Dysuria, Hematuria Skin: Denies: Rash Subjectve: Patient resting comfortably, no acute distress. Objective: Vital Signs Temp Pulse Resp BP Pulse Ox 97.9 F 70 16 114/74 94 09/29/18 08:38 09/29/18 08:42 09/29/18 08:38 09/29/18 08:42 09/29/18 08:38 Oxygen Flow Rate (L/min) 6 Oxygen Delivery Method Nasal Cannula Weight: 224 lb 3.362 oz Body Mass Index (BMI) 34.2 Intake and Output for Last 24 Hours 09/27/18 09/28/18 09/29/18 23:59 23:59 23:59 Intake Total 680 / 680 1070 / 1070 240 / 240 Output Total 1750 / 1750 900 / 900 200 / 200 Balance -1070 / -1070 170 / 170 40 / 40 General: Awake, Alert, Oriented x 3 HEENT: PERRL, EOMI, Sclera Non Icteric Neck: Supple, Good ROM, No Lymph Node Enlargement Lungs: Clear to auscultation Cardiovascular: Regular Rhythm, Normal S1, Normal S2, No Murmurs, No Rubs, No Gallops 09/28/18 05:36: Magnesium 2.2 Rhythm: Telemetry normal sinus rhythm with frequent PVCs. EKG: As above ECHO: As above Stress Test: Pending Cardiac Cath: PCI: CT Surgery: Holter monitor: EPS: PPM: CXR: Chest CT Scan: Assessment/Plan 1. Ischemic cardiomyopathy: Patient has a history of coronary artery disease status post angioplasty and stenting in both 2013 and 2014 with both presentations as fatigue, weakness, shortness of breath. The patient had evidence of mild biventricular failure with chest x-ray demonstrated mild pulmonary edema as well as lower extremity edema. Patient was treated with IV diuretic therapy and an echocardiogram demonstrated an EF around 45-50% which may be overestimated. He was also found to have severe pulmonary hypertension with RVSP of 70 mmHg. His troponins were technically negative. I recommended the patient undergo a non-walking nuclear stress test to determine if he has any areas of ischemia that may benefit from relook catheterization to assess his coronary anatomy and previously placed stents. In the meantime I recommend obtaining medical records from [facility] for both his catheterizations in 2013 and 2014. This will be very helpful to know where the stents were placed and what type they were. In the meantime he will continue baby aspirin, Plavix, metoprolol, lisinopril and Lasix. Would recommend increasing Lasix to 40 mg p.o. daily given his severe pulmonary hypertension and lower extremity edema and evidence of pulmonary edema on chest x-ray. Agree with IV Lasix 40 mg twice daily until the patient is reached his dry weight. The patient is already had Vladislav bandages placed and markedly improved lower extremity edema. Patient stress test is negative for overt ischemia we will treat medically, if it has significant areas of ischemia I would have a low threshold for repeat left heart catheterization. 2. Hyperlipidemia: Recommend obtaining a fasting lipid profile. His LDL should be less than 70. Continue Lipitor. 3. Obstructive sleep apnea: Recommend continuing CPAP therapy going forward. 4. Thank you very much for the opportunity to precipitate in the cardiac care of your patient. Code Visit Inpatient E&M: 57555 Init Hosp L2
[2018-09-29] MEDS: Acetaminophen 325 MG Tablet 650 MG PO (10:23)
--- NOTE | 2018-09-29 12:35 | PCM.PROGNOTE ---
Patient Problems: Active and Suspected Problems CHF exacerbation (Acute) Acute bronchitis (Acute) Subjective: Patient seen and examined. Breathing improved. Denies chest pain. Plan for stress test in a.m. - Physical Exam General: Alert, Oriented x3, Cooperative HEENT: Atraumatic, PERRLA, EOMI, Normocephalic Neck: Supple, No JVD, Negative Carotid Bruits Lungs: Clear to auscultation, Diminished Cardiovascular: Regular rate, Regular Rhythm, Normal S1, Normal S2, No murmurs Abdomen: Bowel Sounds Present, Soft, Non Tender, Non-Distended Extremities: No clubbing, No cyanosis, No edema, Capillary Refill Less than 3 Seconds Skin: No rashes, No breakdown Musculoskeletal: No Tenderness to Palpation of Joints or Extremities Neurological: Cranial nerves II-XII grossly intact, Neuro grossly intact Psych/Mental Status: Normal Affect, Appropriate Vital Signs Temp Pulse Resp BP Pulse Ox 97.9 F 75 16 114/74 94 09/29/18 08:38 09/29/18 11:01 09/29/18 08:38 09/29/18 08:42 09/29/18 08:38 Oxygen Flow Rate (L/min) 6 Oxygen Delivery Method Nasal Cannula Weight: 224 lb 3.362 oz Body Mass Index (BMI) 34.2 Intake and Output for Last 24 Hours 09/27/18 09/28/18 09/29/18 23:59 23:59 23:59 Intake Total 680 / 680 1070 / 1070 480 / 480 Output Total 1750 / 1750 900 / 900 450 / 450 Balance -1070 / -1070 170 / 170 30 / 30 Microbiology Past 72 Hours 09/27/18 23:00 Respiratory Panel (PCR) - Final Mucosa - Nasopharyngeal 09/27/18 15:45 Legionella Antigen - Final Urine, Clean Catch 09/27/18 15:45 Streptococcus pneumoniae Antigen (M - Final Urine, Clean Catch 09/27/18 12:45 Influenza Types A,B Direct FA (NANCY) - Final Mucosa - Nose Laboratory Tests Past 24 Hrs 09/28/18 05:36 Magnesium 2.2 Medical Necessity - Tobacco Use Smoking Status: Former smoker Assessment/Plan All Active Problems CHF exacerbation (Acute) Acute bronchitis (Acute) 1. Acute hypoxic respiratory failure secondary to CHF exacerbation and acute bronchitis-continue supplement oxygen to maintain O2 at or above 90%. Walking pulse ox prior to discharge. 2. Acute on chronic combined systolic and diastolic CHF-chest x-ray admission consistent with CHF. BNP mildly elevated. Strict I&O. Daily weight. IV Lasix 40 mg daily. Continue lisinopril regimen. Vladislav wraps bilateral lower extremities. Echocardiogram shows an EF of 45-50%, stage I diastolic dysfunction, frequent PVCs, mild to moderate global hypokinesis of the left ventricle, severely dilated right ventricle, moderate global right ventricular systolic dysfunction, RVSP estimated to be 70 mmHg. 3. Suspected viral URI/acute viral bronchitis-he recently completed outpatient antibiotics with no improvement. Influenza testing negative. Respiratory panel negative. Chest x-ray consistent with CHF/vascular congestion. Urine for strep and Legionella negative. No leukocytosis, afebrile. Continue Mucinex 1200 mg p.o. twice daily. Albuterol DuoNeb aerosols. Prednisone 40 mg p.o. times 5 days. Do not feel further antibiotics are necessary at this point and will discontinue. Patient will need walking pulse ox prior to discharge. Continue supplement oxygen to maintain O2 at or above 90%. 3. Intermittent bradycardia/frequent PVCs/inverted T wave on EKG/NVT-no previous EKG for comparison. Records requested from patient's primary consultant electronics. Patient denies chest pain. He denies shortness of breath prior to recent URI. Monitor telemetry. Check mg. Cardiology consult placed. Plan for stress test in a.m. 4. CAD status post stents-continue aspirin, statin, Plavix, beta-francisca. Previously followed with consultant electronics at [facility], Dr. Gao. Patient is switching to Dr. Browne and has upcoming appointment 10/31/18. Patient reports his stents were placed approximately 4 years ago. 5. Hypertension-stable, continue home metoprolol, lisinopril, furosemide regimen. 6. Obstructive sleep apnea-continue CPAP nightly. 7. History of tobacco use-suspect patient has underlying COPD given extensive smoking history. Recommend outpatient follow-up with pulmonary medicine for pulmonary function testing. 8. Obesity-encouraged diet lifestyle modifications. DVT prophylaxis- Lovenox il This patient was seen by JUNIOR Ureña under the supervision of Dr. Broussard.
--- NOTE | 2018-09-29 12:38 | PN_ITS ---
Patient Problems: Active and Suspected Problems CHF exacerbation (Acute) Acute bronchitis (Acute) Subjective: Patient seen and examined. Breathing improved. Denies chest pain. Plan for stress test in a.m. - Physical Exam General: Alert, Oriented x3, Cooperative HEENT: Atraumatic, PERRLA, EOMI, Normocephalic Neck: Supple, No JVD, Negative Carotid Bruits Lungs: Clear to auscultation, Diminished Cardiovascular: Regular rate, Regular Rhythm, Normal S1, Normal S2, No murmurs Abdomen: Bowel Sounds Present, Soft, Non Tender, Non-Distended Extremities: No clubbing, No cyanosis, No edema, Capillary Refill Less than 3 Seconds Skin: No rashes, No breakdown Musculoskeletal: No Tenderness to Palpation of Joints or Extremities Neurological: Cranial nerves II-XII grossly intact, Neuro grossly intact Psych/Mental Status: Normal Affect, Appropriate Vital Signs Temp Pulse Resp BP Pulse Ox 97.9 F 75 16 114/74 94 09/29/18 08:38 09/29/18 11:01 09/29/18 08:38 09/29/18 08:42 09/29/18 08:38 Oxygen Flow Rate (L/min) 6 Oxygen Delivery Method Nasal Cannula Weight: 224 lb 3.362 oz Body Mass Index (BMI) 34.2 Intake and Output for Last 24 Hours 09/27/18 09/28/18 09/29/18 23:59 23:59 23:59 Intake Total 680 / 680 1070 / 1070 480 / 480 Output Total 1750 / 1750 900 / 900 450 / 450 Balance -1070 / -1070 170 / 170 30 / 30 Microbiology Past 72 Hours 09/27/18 23:00 Respiratory Panel (PCR) - Final Mucosa - Nasopharyngeal 09/27/18 15:45 Legionella Antigen - Final Urine, Clean Catch 09/27/18 15:45 Streptococcus pneumoniae Antigen (M - Final Urine, Clean Catch 09/27/18 12:45 Influenza Types A,B Direct FA (NANCY) - Final Mucosa - Nose Laboratory Tests Past 24 Hrs 09/28/18 05:36 Magnesium 2.2 Medical Necessity - Tobacco Use Smoking Status: Former smoker Assessment/Plan All Active Problems CHF exacerbation (Acute) Acute bronchitis (Acute) 1. Acute hypoxic respiratory failure secondary to CHF exacerbation and acute bronchitis-continue supplement oxygen to maintain O2 at or above 90%. Walking pulse ox prior to discharge. 2. Acute on chronic combined systolic and diastolic CHF-chest x-ray admission consistent with CHF. BNP mildly elevated. Strict I&O. Daily weight. IV Lasix 40 mg daily. Continue lisinopril regimen. Vladislav wraps bilateral lower extremities. Echocardiogram shows an EF of 45-50%, stage I diastolic dysfunction, frequent PVCs, mild to moderate global hypokinesis of the left ventricle, severely dilated right ventricle, moderate global right ventricular systolic dysfunction, RVSP estimated to be 70 mmHg. 3. Suspected viral URI/acute viral bronchitis-he recently completed outpatient antibiotics with no improvement. Influenza testing negative. Respiratory panel negative. Chest x-ray consistent with CHF/vascular congestion. Urine for strep and Legionella negative. No leukocytosis, afebrile. Continue Mucinex 1200 mg p.o. twice daily. Albuterol DuoNeb aerosols. Prednisone 40 mg p.o. times 5 days. Do not feel further antibiotics are necessary at this point and will discontinue. Patient will need walking pulse ox prior to discharge. Continue supplement oxygen to maintain O2 at or above 90%. 3. Intermittent bradycardia/frequent PVCs/inverted T wave on EKG/NVT-no previous EKG for comparison. Records requested from patient's primary organic lab worker. Patient denies chest pain. He denies shortness of breath prior to recent URI. Monitor telemetry. Check mg. Cardiology consult placed. Plan for stress test in a.m. 4. CAD status post stents-continue aspirin, statin, Plavix, beta-francisca. Previously followed with organic lab worker at [facility], Dr. Gao. Patient is switching to Dr. Browne and has upcoming appointment 10/31/18. Patient reports his stents were placed approximately 4 years ago. 5. Hypertension-stable, continue home metoprolol, lisinopril, furosemide regimen. 6. Obstructive sleep apnea-continue CPAP nightly. 7. History of tobacco use-suspect patient has underlying COPD given extensive smoking history. Recommend outpatient follow-up with pulmonary medicine for pulmonary function testing. 8. Obesity-encouraged diet lifestyle modifications. DVT prophylaxis- Lovenox pa This patient was seen by JUNIOR Ureña under the supervision of Dr. Broussard.
[2018-09-29] MEDS: Atorvastatin Calcium 40 MG Tablet PO (21:10)
[2018-09-30] VITALS (19 sets, daily range): BP systolic 91–113; BP diastolic 55–73; PULSE 47–79; RESP 16–20; TEMP 36.3–36.7; O2SAT 86–96
--- NOTE | 2018-09-30 04:00 | EKG12_ITS ---
Test Reason : AM EKG Blood Pressure : / mmHG Vent. Rate : 072 BPM Atrial Rate : 072 BPM P-R Int : 144 ms QRS Dur : 092 ms QT Int : 428 ms P-R-T Axes : 055 017 040 degrees QTc Int : 468 ms Sinus rhythm with Premature atrial complexes with Aberrant conduction Low voltage QRS T wave abnormality, consider anterior ischemia Prolonged QT Abnormal ECG Confirmed by JHONNY MIXON, JOSEFINA ([id number]), society editor MICKEY HARMON ([id number] on 10/02/2018 1:19:31 PM Referred By: DR MULLEN Confirmed By:JOSEFINA BARRY MD
[2018-09-30 05:15] LABS: Absolute Lymphocyte Count 0.91 X10^3/ul (0.83-4.51); Absolute Neutrophil Count 8.4 X10^3/uL (2.0-7.7); Eosinophil# 0.01 X10^3/uL; Eosinophils% 0.1 % (0-5); Hematocrit 48.1 % (40-54); Hemoglobin 16.9 g/dl (13.0-16.5); Lymphocyte # 0.91 X10^3/ul (4.0); Mean Corp Hgb Conc 35.1 g/gl (32-36); Mean Corpuscular Hgb 36.7 pg (27.0-32.0); Mean Corpuscular Volume 104.3 fL (80-94); Mean Platelet Vol. 10.6 fl (6.2-12.0); Monocyte# 0.77 X10^3/uL; Monocyte% 7.7 % (0-10); Neutrophil # 8.36 X10^3/uL (2.7-7.7); Neutrophil % 83.1 % (47-70); Platelet Count 159 K/mm3 (150-450); RBC Distribution Width CV 12.5 % (11.6-14.6); RBC Distribution Width SD 49.2 fl (35.1-43.9); Red Blood Count 4.61 M/mm3 (4.6-6.2); White Blood Count 10.1 K/mm3 (4.4-11.0)
[2018-09-30 05:24] LABS: POSITIVE COUNT NO; POSITIVE DIFFERENTIAL NO; POSITIVE MORPHOLOGY NO
[2018-09-30 05:27] LABS: Anion Gap 5 (5-15); BUN 32 mg/dL (7-18); BUN/Creat Ratio 30.2 RATIO (10-20); Calcium,Total 9.5 mg/dL (8.5-10.1); Chloride 100 mmol/L (98-107); Creatinine, Serum 1.06 mg/dL (0.70-1.30); EST Glomerular Filtration Rate 75 mL/min (>60); Est Glom Filt Rate - Afr Amer 91 mL/min (>60); Estimated Creatinine Clearance 69.01 ml/min; Glucose 124 mg/dL (74-106); Potassium 5.5 mmol/L (3.5-5.1); Sodium Level 138 mmol/L (136-145)
[2018-09-30 05:34] LABS: International Normalized Ratio 1.1; Prothrombin Time (Protime)PT. 13.7 SECONDS (11.7-14.9)
[2018-09-30 05:35] LABS: Partial Thromboplast Time 27.3 Seconds (24.1-36.2)
[2018-09-30] MEDS: Aspirin E.C. 81 MG Tablet PO (05:42)
[2018-09-30] MEDS: Lisinopril 10 MG Tablet PO (05:43)
[2018-09-30] MEDS: Clopidogrel Bisulfate 75 MG Tablet PO (05:43)
[2018-09-30] MEDS: Furosemide 40 MG/4 ML Vial IV (10:33)
[2018-09-30] MEDS: predniSONE 20 MG Tablet 40 MG PO (10:33)
[2018-09-30] MEDS: Metoprolol Tartrate 25 MG Tablet PO (10:33)
[2018-09-30] MEDS: guaiFENesin 1,200 MG Tablet 1200 MG PO ×2 (10:33→20:57)
[2018-09-30] MEDS: 0.9% NaCl Peripheral Flush Adult/Peds IV (10:33)
--- NOTE | 2018-09-30 10:51 | STRESSREP_ITS ---
Stress Test Report Pharmacologic myocardial perfusion stress test. 63-year-old man with a history of coronary artery disease. Stress protocol: Resting EKG demonstrates normal sinus rhythm with a rate of 68 bpm frequent premature ventricular and atrial complexes noted. 0.4 mg of regadenoson was infused per usual protocol allowed by intravenous saline flush injection. Continuous EKG monitoring was performed. The maximum heart rate attained was 126 bpm which was 80% of maximum corrected heart rate maximum workload was 1 metabolic equivalent. At rest with no ST or T wave changes noted to suggest abnormal flow reserve at peak infusion nonspecific ST-T wave changes were noted with number the criteria for ischemia. No clinical angina was noted. The resting blood pressure was 120/78 with a final blood pressure 110/72. Myocardial perfusion protocol. 14.8 mCi of technetium 99m sestamibi was injected at rest. 0.4 mg of regadenoson was infused per usual protocol. At peak infusion 45.0 mCi of technetium 99m sestamibi was injected stress images were obtained stress and rest images are reconstructed in comparing the short axis vertical and horiz ontal long axes. Gated images were also obtained Perfusion SPECT analysis: Review of the stress images demonstrate normal perfusion noted in the septum anterior wall and the anterolateral wall. The inferior wall demonstrates reduced perfusion including the inferolateral wall. The resting images demonstrate a similar pattern with minimal improvement. The above is suggestive of a previous inferior infarct with probable mild residual inferior ischemia. Gated SPECT analysis: The gated ejection fraction is noted to be 52%. Conclusion: Mildly abnormal pharmacologic myocardial perfusion stress test with evidence of previous inferior infarct and mild residual ischemia.
--- NOTE | 2018-09-30 14:25 | PN_ITS ---
Addendum entered and electronically signed by JUNIOR Ureña 09/30/18 14:58: Code Visit Plan for cath tomorrow per cardiology. Original Note: <Shira Villalobos - Last Filed: 09/30/18 14:57> Patient Problems: Active and Suspected Problems CHF exacerbation (Acute) Acute bronchitis (Acute) Subjective: Patient seen and examined. Denies current complaints. Underwent stress test this morning. Denies chest pain. Denies shortness of breath. - Physical Exam General: Alert, Oriented x3, Cooperative HEENT: Atraumatic, PERRLA, EOMI, Normocephalic Neck: Supple, No JVD, Negative Carotid Bruits Lungs: Clear to auscultation, Diminished Cardiovascular: Regular rate, Regular Rhythm, Normal S1, Normal S2, No murmurs Abdomen: Bowel Sounds Present, Soft, Non Tender, Non-Distended Extremities: No clubbing, No cyanosis, No edema, Capillary Refill Less than 3 Seconds Skin: No rashes, No breakdown Musculoskeletal: No Tenderness to Palpation of Joints or Extremities Neurological: Cranial nerves II-XII grossly intact, Neuro grossly intact Psych/Mental Status: Normal Affect, Appropriate Vital Signs Temp Pulse Resp BP Pulse Ox 98.0 F 78 18 113/62 96 09/30/18 08:56 09/30/18 10:43 09/30/18 08:56 09/30/18 08:56 09/30/18 12:06 Oxygen Flow Rate (L/min) 4 Oxygen Delivery Method Nasal Cannula Weight: 225 lb 15.581 oz Body Mass Index (BMI) 34.2 Intake and Output for Last 24 Hours 09/28/18 09/29/18 09/30/18 23:59 23:59 23:59 Intake Total 1550 / 1550 840 / 840 480 / 480 Output Total 900 / 900 700 / 700 255 / 255 Balance 650 / 650 140 / 140 225 / 225 Microbiology Past 72 Hours 09/27/18 23:00 Respiratory Panel (PCR) - Final Mucosa - Nasopharyngeal 09/27/18 15:45 Legionella Antigen - Final Urine, Clean Catch 09/27/18 15:45 Streptococcus pneumoniae Antigen (M - Final Urine, Clean Catch 09/27/18 12:45 Influenza Types A,B Direct FA (NANCY) - Final Mucosa - Nose Laboratory Tests Past 24 Hrs 03/09/30/18 09/30/18 05:04 05:04 05:04 WBC 10.1 RBC 4.61 Hgb 16.9 H Hct 48.1 MCV 104.3 H MCH 36.7 H MCHC 35.1 RDW 12.5 RDW Differential 49.2 H Plt Count 159 MPV 10.6 Immature Gran % (Auto) 0.100 Neut % (Auto) 83.1 H Lymph % (Auto) 9.0 L [place] % (Auto) 7.7 Eos % (Auto) 0.1 Baso % (Auto) 0.0 Absolute Neuts (auto) 8.4 H Absolute Lymphs (auto) 0.91 Total Counted Not Reportable PT 13.7 INR 1.1 APTT 27.3 Sodium 138 Potassium 5.5 H Chloride 100 Carbon Dioxide 33.0 H Anion Gap 5 BUN 32 H Creatinine 1.06 Estim Creat Clear Calc 69.01 Est GFR (MDRD) Af Amer 91 Est GFR (MDRD) Non-Af 75 BUN/Creatinine Ratio 30.2 H Glucose 124 H Calcium 9.5 Medical Necessity - Tobacco Use Smoking Status: Former smoker Assessment/Plan All Active Problems CHF exacerbation (Acute) Acute bronchitis (Acute) 1. Acute hypoxic respiratory failure secondary to CHF exacerbation and acute bronchitis-continue supplement oxygen to maintain O2 at or above 90%. Walking pulse ox prior to discharge. 2. Acute on chronic combined systolic and diastolic CHF-chest x-ray admission consistent with CHF. BNP mildly elevated. Strict I&O. Daily weight. Discontinue further IV Lasix and increase home Lasix regimen to 40 mg p.o. daily. Continue lisinopril regimen. Vladislav wraps bilateral lower extremities. Echocardiogram shows an EF of 45-50%, stage I diastolic dysfunction, frequent PVCs, mild to moderate global hypokinesis of the left ventricle, severely dilated right ventricle, moderate global right ventricular systolic dysfunction, RVSP estimated to be 70 mmHg. 3. Suspected viral URI/acute viral bronchitis-he recently completed outpatient antibiotics with no improvement. Influenza testing negative. Respiratory panel negative. Chest x-ray consistent with CHF/vascular congestion. Urine for strep and Legionella negative. No leukocytosis, afebrile. Continue Mucinex 1200 mg p.o. twice daily. Albuterol DuoNeb aerosols. Prednisone 40 mg p.o. times 5 days. Do not feel further antibiotics are necessary at this point and will discontinue. Patient will need walking pulse ox prior to discharge. Continue supplement oxygen to maintain O2 at or above 90%. 3. Intermittent bradycardia/frequent PVCs/inverted T wave on EKG/NVT-no previous EKG for comparison. Patient denies chest pain. He denies shortness of breath prior to recent URI. Monitor telemetry. Cardiology consult placed. Stress test this morning mildly abnormal. Await further cardiology recommendations. 4. CAD status post stents-continue aspirin, statin, Plavix, beta-francisca. Previously followed with landfill attendant at [facility], Dr. Gao. Patient is switching to Dr. Browne and has upcoming appointment 10/31/18. Patient reports his stents were placed approximately 4 years ago. 5. Hypertension-stable, continue home metoprolol, lisinopril, furosemide regimen. 6. Obstructive sleep apnea-continue CPAP nightly. 7. History of tobacco use-suspect patient has underlying COPD given extensive smoking history. Recommend outpatient follow-up with pulmonary medicine for pulmonary function testing. 8. Obesity-encouraged diet lifestyle modifications. DVT prophylaxis- Lovenox sc This patient was seen by JUNIOR Ureña under the supervision of Dr. Zaragoza. <Ravinder Zaragoza - Last Filed: 09/30/18 16:53> - Physical Exam General: Alert, Cooperative HEENT: Atraumatic, Normocephalic Neck: No Nodes, Thyroid Normal Size and Texture Cardiovascular: Regular rate, Regular Rhythm, Normal S1, Normal S2 Abdomen: Bowel Sounds Present, Soft, Non Tender, Non-Distended Extremities: No edema, No Calf Tenderness Psych/Mental Status: Normal Affect, Appropriate Vital Signs Temp Pulse Resp BP Pulse Ox 36.6 C 70 16 101/67 94 09/30/18 14:53 09/30/18 15:31 09/30/18 14:53 09/30/18 14:53 09/30/18 14:53 Oxygen Flow Rate (L/min) 3 Oxygen Delivery Method Nasal Cannula Weight: 102.5 kg Body Mass Index (BMI) 34.2 Intake and Output for Last 24 Hours 09/28/18 09/29/18 09/30/18 23:59 23:59 23:59 Intake Total 1550 / 1550 840 / 840 480 / 480 Output Total 900 / 900 700 / 700 255 / 255 Balance 650 / 650 140 / 140 225 / 225 Microbiology Past 72 Hours 09/27/18 23:00 Respiratory Panel (PCR) - Final Mucosa - Nasopharyngeal 09/27/18 15:45 Legionella Antigen - Final Urine, Clean Catch 09/27/18 15:45 Streptococcus pneumoniae Antigen (M - Final Urine, Clean Catch 09/27/18 12:45 Influenza Types A,B Direct FA (NANCY) - Final Mucosa - Nose Laboratory Tests Past 24 Hrs 09/30/18 09/30/18 09/30/18 05:04 05:04 05:04 WBC 10.1 RBC 4.61 Hgb 16.9 H Hct 48.1 MCV 104.3 H MCH 36.7 H MCHC 35.1 RDW 12.5 RDW Differential 49.2 H Plt Count 159 MPV 10.6 Immature Gran % (Auto) 0.100 Neut % (Auto) 83.1 H Lymph % (Auto) 9.0 L [place] % (Auto) 7.7 Eos % (Auto) 0.1 Baso % (Auto) 0.0 Absolute Neuts (auto) 8.4 H Absolute Lymphs (auto) 0.91 Total Counted Not Reportable PT 13.7 INR 1.1 APTT 27.3 Sodium 138 Potassium 5.5 H Chloride 100 Carbon Dioxide 33.0 H Anion Gap 5 BUN 32 H Creatinine 1.06 Estim Creat Clear Calc 69.01 Est GFR (MDRD) Af Amer 91 Est GFR (MDRD) Non-Af 75 BUN/Creatinine Ratio 30.2 H Glucose 124 H Calcium 9.5 Assessment/Plan Patient seen and examined independently. Data reviewed. I agree with the above note by the nurse practitioner. 1. Acute heart failure with reduced ejection fraction: EF of 45-50%. On oral Lasix. Code Visit Inpatient E&M: 83218 Subs Hosp L2
--- NOTE | 2018-09-30 14:58 | CASEMGMT ---
According to the [employer] website, the following are in-network tertiary facilities: [facility], [facility], [facility], [facility], [facility], [facility], [facility], [facility], [facility], and . Erin CUADRA CM
[2018-09-30] MEDS: Atorvastatin Calcium 40 MG Tablet PO (20:57)
[2018-10-01] VITALS (21 sets, daily range): BP systolic 81–125; BP diastolic 40–72; PULSE 34–78; RESP 16–20; TEMP 36.4–37; O2SAT 86–96
[2018-10-01 05:43] LABS: Absolute Lymphocyte Count 2.19 X10^3/ul (0.83-4.51); Absolute Neutrophil Count 7.2 X10^3/uL (2.0-7.7); Basophil# 0.02 X10^3/uL; Basophil% 0.2 % (0-1); Eosinophil# 0.11 X10^3/uL; Hematocrit 53.4 % (40-54); Hemoglobin 17.1 g/dl (13.0-16.5); Lymphocyte # 2.19 X10^3/ul (4.0); Lymphocyte % 20.6 % (19-41); Mean Corpuscular Hgb 34.1 pg (27.0-32.0); Mean Corpuscular Volume 106.4 fL (80-94); Mean Platelet Vol. 10.9 fl (6.2-12.0); Monocyte% 10.3 % (0-10); Neutrophil % 67.7 % (47-70); Platelet Count 162 K/mm3 (150-450); RBC Distribution Width CV 12.9 % (11.6-14.6); RBC Distribution Width SD 50.1 fl (35.1-43.9); Red Blood Count 5.02 M/mm3 (4.6-6.2); White Blood Count 10.6 K/mm3 (4.4-11.0)
[2018-10-01 05:44] LABS: POSITIVE COUNT NO; POSITIVE DIFFERENTIAL NO; POSITIVE MORPHOLOGY NO
[2018-10-01 05:52] LABS: Anion Gap 7 (5-15); BUN 32 mg/dL (7-18); BUN/Creat Ratio 31.4 RATIO (10-20); Calcium,Total 9.4 mg/dL (8.5-10.1); Chloride 100 mmol/L (98-107); Creatinine, Serum 1.02 mg/dL (0.70-1.30); EST Glomerular Filtration Rate 78 mL/min (>60); Est Glom Filt Rate - Afr Amer 95 mL/min (>60); Estimated Creatinine Clearance 71.72 ml/min; Glucose 85 mg/dL (74-106); Potassium 4.4 mmol/L (3.5-5.1); Sodium Level 140 mmol/L (136-145)
--- NOTE | 2018-10-01 05:55 | EKG12_ITS ---
Test Reason : AM EKG Blood Pressure : / mmHG Vent. Rate : 064 BPM Atrial Rate : 064 BPM P-R Int : 148 ms QRS Dur : 098 ms QT Int : 440 ms P-R-T Axes : 055 001 037 degrees QTc Int : 453 ms Sinus rhythm with Blocked Premature atrial complexes Low voltage QRS T wave abnormality, consider anterior ischemia Abnormal ECG When compared with ECG of 30-SEP-2018 05:32, MANUAL COMPARISON REQUIRED, DATA IS UNCONFIRMED Confirmed by JHONNY MIXON, JOSEFINA ([id number]), online editor NADJA PALMER ([id number]) on 10/02/2018 8:49:11 AM Referred By: DR NAGY Confirmed By:JOSEFINA BARRY MD
[2018-10-01 05:57] LABS: International Normalized Ratio 1.1; Prothrombin Time (Protime)PT. 14.3 SECONDS (11.7-14.9)
[2018-10-01] MEDS: 0.9% Normal Saline 1,000 ML 15 ML IV (06:15)
[2018-10-01] MEDS: Clopidogrel Bisulfate 75 MG Tablet PO (06:16)
[2018-10-01] MEDS: Aspirin E.C. 81 MG Tablet PO (06:16)
[2018-10-01] MEDS: Lisinopril 10 MG Tablet PO (06:16)
[2018-10-01] MEDS: DiphenhydrAMINE 25 MG Capsule 50 MG PO (06:16)
[2018-10-01] MEDS: Metoprolol Tartrate 25 MG Tablet PO (06:30)
--- NOTE | 2018-10-01 08:31 | CL.D_ITS ---
Patient Name: SONG PERRIN Study Date: 10/01/2018 Performing: Javier Elaine MD Ht: 68.11 inches 173 cm : 1955 Wt: 224.87 lbs 102 kg Age: 63 Gender: male BSA: 2.15 PROCEDURE(S) PERFORMED [id number]/LV CLINICAL PROFILE AND INDICATIONS Indications: Stable Known CAD, Cardiac Arrythmia, LV Dysfunction Heart Failure: NYHA Class: 2, Newly Diagnosed: No, Heart Failure Type: Systolic Stress/Imaging Stress Test w/SPECT MPI: Yes Result: Positive Low RiskStress Test with SPECT MPI: Positive Low Risk Angina Classification Anginal Classification w/in 2 Weeks: No symptoms CAD Presentations: Other: Frequent PVCs and dyspnea on exertion. Comorbidities/Risk Factors: Hypertension Dyslipidemia Prior CHF Prior PCI CONCLUSIONS Widely patent LAD and LCX stents Global LV systolic dysfunction- Moderate LVEF: by LV gram 45 % RECOMMENDATIONS Management as per referring Die Grinder Manual sheath removal. Frequent PVCs most likely due to acute pulmonary viral illness. DESCRIPTION OF PROCEDURE The patient arrived to the procedure lab. The risks and benefits of the procedure as well as a full d escription of our services here and current unavailability of surgical backup were fully explained to the patient and/or their significant other prior to the catheterization. The Timeout was completed, verifying the correct patient and procedure. The patient's procedural site was prepped and draped in the usual fashion. Local anesthetic was given subcutaneously to right groin region with Lidocaine 2%. Using a modified Seldinger technique, arterial access was obtained via the right femoral artery, a 4 Fr 45cm sheath was inserted Left Coronary Artery selective angiography was performed in multiple vie ws using a 4 Fr. JL5 catheter. Right Coronary Artery selective angiography was then performed in mult iple views using a 4 Fr. 3DRC catheter. Left Ventriculography was performed in GAINES projection using a 4 Fr. Pigtail catheter. LV to AO pullback pressures were then recorded.The arterial sheath was pulled and manual compression applied until hemostasis is achieved. CORONARY ANGIOGRAPHY DOMINANCE: Right Dominant LEFT HEART ASSESSMENT Left Ventricular Ejection Fraction: by LV Gram 45 % Global Hypokinesis - Moderate Depressed Left Ventricular systolic function LVEDP: 7 mmHg Normal Left Ventricular End Diastolic Pressure LEFT MAIN: Angiographically normal LEFT ANTERIOR DECENDING ARTERY: PROX LAD: Previously placed stent is patent CIRCUMFLEX ARTERY: PROX CIRC: Previously placed stent is patent RIGHT CORONARY ARTERY: Mild luminal irregularities less than 30% RT PDA: Proximal - Angiographically normal COMPLICATIONS No Complications PROCEDURE MEDICATIONS Versed 1 mg IV Oxygen: 4 L/min via nasal cannula Atropine 1mg/10ml 0.25 amp @ 10/01/2018 08:06:17 IV Bolus: .9 NaCl 300 ml total 10/01/2018 08:15:20 SUMMARY OF HEMODYNAMIC DATA Time AIR REST ECG 07:49:24 AO 67/45 (56) SA 08:05:49 AO 81/57 (68) 08:07:48 LV 87/-7, 7 08:13:10 LV 94/-7, 0 08:13:17 LVp 87/-10, 4 08:13:26 AOp 88/50 (63) 08:13:31 Signed By Javier Elaine MD On 10/01/2018 08:30:35 Javier Elaine MD
[2018-10-01] MEDS: 0.9% Normal Saline 1,000 ML 150 ML IV (08:40)
[2018-10-01] MEDS: predniSONE 20 MG Tablet 40 MG PO (10:23)
[2018-10-01] MEDS: guaiFENesin 1,200 MG Tablet 1200 MG PO (10:23)
[2018-10-01] MEDS: Furosemide 40 MG Tablet PO (10:23)
--- NOTE | 2018-10-01 11:50 | PCM.DC ---
- Discharge Diagnoses Current Active Problems: Current Active and Chronic Problems (Last Updated 10/01/18 @ 10:28 by Katarzyna Mac) Acute bronchitis (Acute) Ischemic cardiomyopathy (Chronic) EF 45% per [facility] 10/01/2018 Atherosclerotic heart disease of [place] coronary artery without angina pectoris (Chronic) Hx of stents to LAD and LCX Acute exacerbation of CHF (congestive heart failure) (Acute) Hypertension (Chronic) History of left heart catheterization (Chronic 10/01/18) Widely patent LAD and LCX stents, Global LV systolic dysfunction- Moderate. LVEF: by LV gram 45 % Per DJN @ [facility] 10/01/2018 You will use the following diet at home:: Cardiac Discharge Activity: Return to Normal Activity Call your doctor if you observe: Shortness of breath, Dizziness, Fainting spells, Chest pain Allergies/Adverse Reactions: Allergies No Known Allergies Allergy (Verified 09/27/18 12:25) Medications to take at Discharge Aspirin [Aspirin EC] 81 mg PO DAILY 09/27/18 Atorvastatin Calcium [Lipitor] 40 mg PO QHS 09/27/18 Clopidogrel Bisulfate [Clopidogrel] 75 mg PO DAILY 09/27/18 Codeine Phosphate/Guaifenesin [Guaiatussin AC Liquid] 5 ml PO Q6H PRN PRN 09/27/18 Lisinopril [Zestril] 10 mg PO DAILY 09/27/18 Metoprolol Tartrate [Lopressor (beta francisca)] 25 mg PO BID 09/27/18 Albuterol Inhaler [Ventolin Hfa] 1 - 2 puff INHALATION Q4H PRN PRN #1 inhaler 10/01/18 Furosemide [Lasix] 40 mg PO DAILY #30 tablet 10/01/18 Prednisone See Taper PO DAILY #18 tablet 10/01/18 The following prescriptions were given: Albuterol Inhaler [Ventolin Hfa] 1 - 2 puff INHALATION Q4H PRN PRN #1 inhaler PRN Reason: Shortness Of Breath Furosemide [Lasix] 40 mg PO DAILY #30 tablet Prednisone See Taper PO DAILY #18 tablet Primary Care Physician: NOT,DEFINED [NON-STAFF] - Test Results: Test results from this visit will be discussed in further detail at your follow-up appointment, if applicable. Please Follow Up With: Olivier Vanegas When: PCP, 1 Week Please Follow Up With: Wyatt Browne MD When: 1-2 Weeks Please Follow Up With: Tyrone Sanford MD - Pulmonary Medicine When: 1-2 Weeks, workup for COPD Proposed Discharge Date: 10/01/18
--- NOTE | 2018-10-01 11:53 | DCINST_ITS ---
- Discharge Diagnoses Current Active Problems: Current Active and Chronic Problems (Last Updated 10/01/18 @ 10:28 by Katarzyna Mac) Acute bronchitis (Acute) Ischemic cardiomyopathy (Chronic) EF 45% per [facility] 10/01/2018 Atherosclerotic heart disease of [place] coronary artery without angina pectoris (Chronic) Hx of stents to LAD and LCX Acute exacerbation of CHF (congestive heart failure) (Acute) Hypertension (Chronic) History of left heart catheterization (Chronic 10/01/18) Widely patent LAD and LCX stents, Global LV systolic dysfunction- Moderate. LVEF: by LV gram 45 % Per [facility]N @ [facility] 10/01/2018 You will use the following diet at home:: Cardiac Discharge Activity: Return to Normal Activity Call your doctor if you observe: Shortness of breath, Dizziness, Fainting spells, Chest pain Allergies/Adverse Reactions: Allergies No Known Allergies Allergy (Verified 09/27/18 12:25) Medications to take at Discharge Aspirin [Aspirin EC] 81 mg PO DAILY 09/27/18 Atorvastatin Calcium [Lipitor] 40 mg PO QHS 09/27/18 Clopidogrel Bisulfate [Clopidogrel] 75 mg PO DAILY 09/27/18 Codeine Phosphate/Guaifenesin [Guaiatussin AC Liquid] 5 ml PO Q6H PRN PRN 09/27/18 Lisinopril [Zestril] 10 mg PO DAILY 09/27/18 Metoprolol Tartrate [Lopressor (beta francisca)] 25 mg PO BID 09/27/18 Albuterol Inhaler [Ventolin Hfa] 1 - 2 puff INHALATION Q4H PRN PRN #1 inhaler 10/01/18 Furosemide [Lasix] 40 mg PO DAILY #30 tablet 10/01/18 Prednisone See Taper PO DAILY #18 tablet 10/01/18 The following prescriptions were given: Albuterol Inhaler [Ventolin Hfa] 1 - 2 puff INHALATION Q4H PRN PRN #1 inhaler PRN Reason: Shortness Of Breath Furosemide [Lasix] 40 mg PO DAILY #30 tablet Prednisone See Taper PO DAILY #18 tablet Primary Care Physician: NOT,DEFINED [NON-STAFF] - Test Results: Test results from this visit will be discussed in further detail at your follow- up appointment, if applicable. Please Follow Up With: Olivier Vanegas When: PCP, 1 Week Please Follow Up With: Wyatt Browne MD When: 1-2 Weeks Please Follow Up With: Tyrone Sanford MD - Pulmonary Medicine When: 1-2 Weeks, workup for COPD Proposed Discharge Date: 10/01/18
--- NOTE | 2018-10-01 12:57 | NURSING ---
Ambulated patient around room and out into hallway. Cath site remains c/d/i/and soft.
--- NOTE | 2018-10-01 13:26 | PCM.DC.SUM ---
<Shira Villalobos - Last Filed: 10/01/18 13:45> Discharge Date and Diagnosis Date of Admission: 09/27/18 Date of Discharge: 10/01/18 - Primary Discharge Diagnosis Active and Suspected Problems (Last Updated 10/01/18 @ 10:28 by Katarzyna Mac) 1. Acute hypoxic respiratory failure secondary to CHF exacerbation and acute bronchitis 2. Acute on chronic combined systolic and diastolic CHF 3. Suspected viral URI/acute viral bronchitis 3. Intermittent bradycardia/frequent PVCs/inverted T wave on EKG 4. CAD status post stents 5. Hypertension 6. Obstructive sleep apnea 7. History of tobacco use 8. Obesity - Secondary Discharge Diagnosis Chronic Problems (Last Updated 10/01/18 @ 10:28 by Katarzyna Mac) Ischemic cardiomyopathy (Chronic) EF 45% per [facility] 10/01/2018 Atherosclerotic heart disease of [place] coronary artery without angina pectoris (Chronic) Hx of stents to LAD and LCX Hypertension (Chronic) History of left heart catheterization (Chronic 10/01/18) Widely patent LAD and LCX stents, Global LV systolic dysfunction- Moderate. LVEF: by LV gram 45 % Per DJN @ [facility] 10/01/2018 Hospital Course and Treatment Imaging Results: Diagnostic Data Chest X-Ray 09/27/18 13:04 IMPRESSION: Moderate degree of cardiomegaly. Findings in keeping with the vascular congestion and mild CHF. Electronically Signed: Galen Duran, at 13:22 EDT , Service support , Dr. Elaine- Cardiology Operations: None Procedures: 2-D Echocardiogram, Cardiac catheterization, Stress test Summary of Care Provided: The patient is a 63 year old M admitted 09/27/2018 due to shortness of breath and URI symptoms. 1. Acute hypoxic respiratory failure secondary to CHF exacerbation and acute bronchitis-patient continues to require supplemental oxygen at discharge. Continue supplement oxygen to maintain O2 sat above 90%. Patient is ambulatory in the home. 2. Acute on chronic combined systolic and diastolic CHF-chest x-ray admission consistent with CHF. BNP mildly elevated. Home Lasix regimen increased to 40 mg daily. Continue lisinopril regimen. Lvadislav wraps bilateral lower extremities. Echocardiogram shows an EF of 45-50%, stage I diastolic dysfunction, frequent PVCs, mild to moderate global hypokinesis of the left ventricle, severely dilated right ventricle, moderate global right ventricular systolic dysfunction, RVSP estimated to be 70 mmHg. 3. Suspected viral URI/acute viral bronchitis-he recently completed outpatient antibiotics with no improvement. Influenza testing negative. Respiratory panel negative. Chest x-ray consistent with CHF/vascular congestion. Urine for strep and Legionella negative. No leukocytosis, afebrile. Albuterol DuoNeb aerosols. Prednisone taper at discharge. Further antibiotics discontinued. Follow-up with pulmonary medicine as outpatient for suspected COPD. 3. Intermittent bradycardia/frequent PVCs/inverted T wave on EKG/NVT-no previous EKG for comparison. Patient denies chest pain. He denies shortness of breath prior to recent URI. Stress test this morning mildly abnormal. Cardiac catheterization 10/01/2018 with nonobstructive coronary arteries. Frequent PVCs likely secondary to acute viral illness. 4. CAD status post stents-continue aspirin, statin, Plavix, beta-francisca. Previously followed with stucco plasterer at [facility], Dr. Gao. Patient is switching to Dr. Browne and has upcoming appointment 10/31/18. Patient reports his stents were placed approximately 4 years ago. Cardiac catheterization 10/01/2018 with nonobstructive coronary arteries. Continue medical management. Follow-up with cardiology in 1-2 weeks. 5. Hypertension-stable, continue home metoprolol, lisinopril, furosemide regimen. 6. Obstructive sleep apnea-continue CPAP nightly. 7. History of tobacco use-suspect patient has underlying COPD given extensive smoking history. Recommend outpatient follow-up with pulmonary medicine for pulmonary function testing. Refer to Dr. Sanford in 1-2 weeks. 8. Obesity-encouraged diet lifestyle modifications. General: Alert, Oriented x3, Cooperative HEENT: Atraumatic, PERRLA, EOMI, Normocephalic Neck: Supple, No JVD, Negative Carotid Bruits Lungs: Clear to auscultation, Diminished Cardiovascular: Regular rate, Regular Rhythm, Normal S1, Normal S2, No murmurs Abdomen: Bowel Sounds Present, Soft, Non Tender, Non-Distended Extremities: No clubbing, No cyanosis, No edema, Capillary Refill Less than 3 Seconds Skin: No rashes, No breakdown Musculoskeletal: No Tenderness to Palpation of Joints or Extremities Neurological: Cranial nerves II-XII grossly intact, Neuro grossly intact Psych/Mental Status: Normal Affect, Appropriate Patient seen and examined prior to discharge. Physical assessment as noted above. Patient is stable for discharge with follow up recommendations as noted above. This patient was seen by JUNIOR Ureña under the supervision of Dr. Zaragoza. - Physical Exam Vital Signs Temp Pulse Resp BP Pulse Ox 98.6 F 72 16 100/68 86 10/01/18 12:30 10/01/18 12:30 10/01/18 12:30 10/01/18 12:30 10/01/18 12:56 Oxygen Flow Rate (L/min) [ 2 AMBULATION with Oxygen] Oxygen Flow Rate (L/min) [At 0 REST on Room Air] Oxygen Flow Rate (L/min) 2 Oxygen Delivery Method Nasal Cannula Weight: 225 lb 4.999 oz Body Mass Index (BMI) 34.2 Intake and Output for Last 24 Hours 09/29/18 09/30/18 10/01/18 23:59 23:59 23:59 Intake Total 840 / 840 1080 / 1080 982 / 982 Output Total 700 / 700 755 / 755 550 / 550 Balance 140 / 140 325 / 325 432 / 432 Microbiology Past 72 Hours 09/27/18 23:00 Respiratory Panel (PCR) - Final Mucosa - Nasopharyngeal Laboratory Tests Past 24 Hrs 10/01/18 10/01/18 10/01/18 05:25 05:25 05:25 WBC 10.6 RBC 5.02 Hgb 17.1 H Hct 53.4 MCV 106.4 H MCH 34.1 H MCHC 32.0 RDW 12.9 RDW Differential 50.1 H Plt Count 162 MPV 10.9 Immature Gran % (Auto) 0.200 Neut % (Auto) 67.7 Lymph % (Auto) 20.6 [place] % (Auto) 10.3 H Eos % (Auto) 1.0 Baso % (Auto) 0.2 Absolute Neuts (auto) 7.2 Absolute Lymphs (auto) 2.19 Total Counted Not Reportable PT 14.3 INR 1.1 APTT 27.0 Sodium 140 Potassium 4.4 Chloride 100 Carbon Dioxide 33.0 H Anion Gap 7 BUN 32 H Creatinine 1.02 Estim Creat Clear Calc 71.72 Est GFR (MDRD) Af Amer 95 Est GFR (MDRD) Non-Af 78 BUN/Creatinine Ratio 31.4 H Glucose 85 Calcium 9.4 Discharge Diet: Low fat/ Low Cholesterol Discharge Activity: Return to Normal Activity Call your doctor if you observe: Shortness of breath, Dizziness, Fainting spells, Chest pain Home Medications: Medications to take at Discharge Aspirin [Aspirin EC] 81 mg PO DAILY 09/27/18 Atorvastatin Calcium [Lipitor] 40 mg PO QHS 09/27/18 Clopidogrel Bisulfate [Clopidogrel] 75 mg PO DAILY 09/27/18 Codeine Phosphate/Guaifenesin [Guaiatussin AC Liquid] 5 ml PO Q6H PRN PRN 09/27/18 Lisinopril [Zestril] 10 mg PO DAILY 09/27/18 Metoprolol Tartrate [Lopressor (beta francisca)] 25 mg PO BID 09/27/18 Albuterol Inhaler [Ventolin Hfa] 1 - 2 puff INHALATION Q4H PRN PRN #1 inhaler 10/01/18 Furosemide [Lasix] 40 mg PO DAILY #30 tablet 10/01/18 Prednisone See Taper PO DAILY #18 tablet 10/01/18 Following Prescrptions Were Given to Patient: Albuterol Inhaler [Ventolin Hfa] 1 - 2 puff INHALATION Q4H PRN PRN #1 inhaler PRN Reason: Shortness Of Breath Furosemide [Lasix] 40 mg PO DAILY #30 tablet Prednisone See Taper PO DAILY #18 tablet Primary Care Physician: NOT,DEFINED [NON-STAFF] - Please Follow Up With: Olivier Vanegas When: PCP, 1 Week Please Follow Up With: Wyatt Browne MD When: 1-2 Weeks Please Follow Up With: Tyrone Sanford MD When: 1-2 Weeks, workup for COPD Disposition: Home Minutes spent on discharge:: 35 Patient Condition:: Stable Medical Necessity - Tobacco Use Smoking Status: Former smoker Meaningful Use Info Meaningful Use Diagnoses (Choose all that apply): CHF - CHF VLADISLAV/ARB ordered at discharge?: Yes Documented LVEF (%): 45 <Ravinder Zaragoza - Last Filed: 10/01/18 16:26> Discharge Date and Diagnosis - Secondary Discharge Diagnosis Chronic Problems (Last Updated 10/01/18 @ 13:26 by JUNIOR Ureña) Ischemic cardiomyopathy (Chronic) EF 45% per [facility] 10/01/2018 Atherosclerotic heart disease of [place] coronary artery without angina pectoris (Chronic) Hx of stents to LAD and LCX Hypertension (Chronic) History of left heart catheterization (Chronic 10/01/18) Widely patent LAD and LCX stents, Global LV systolic dysfunction- Moderate. LVEF: by LV gram 45 % Per DJN @ [facility] 10/01/2018 Hospital Course and Treatment Operations: None Procedures: 2-D Echocardiogram, Cardiac catheterization, Stress test Summary of Care Provided: Patient seen and examined independently. Data reviewed. I agree with the above note by the nurse practitioner. The patient is a 63 year old M presents with shortness of breath. Secondary to acute heart failure plus bronchitis. Patient had an echocardiogram that showed an ejection fraction of 45-50%. Patient was diuresed and then transition over to oral Lasix. Comp gated by pulmonary hypertension, likely group 2 due to cardiac etiology with estimated right ventricular systolic pressure of 70 mmHg. Patient underwent a left heart catheterization that showed normal coronaries. Overall patient is doing well. Patient advised to follow-up with pulmonology as well as cardiology as outpatient. [] - Physical Exam General: Alert, No apparent distress HEENT: Atraumatic, Normocephalic Neck: No Nodes, Thyroid Normal Size and Texture Lungs: Clear to auscultation, Normal air movement, No rhonchi, No wheeze Cardiovascular: Regular rate, Regular Rhythm, Normal S1, Normal S2 Abdomen: Bowel Sounds Present, Soft, Non Tender, Non-Distended, No Hepato-splenomegaly Extremities: No edema, No Calf Tenderness Skin: No rashes, No breakdown Psych/Mental Status: Normal Affect, Appropriate Vital Signs Temp Pulse Resp BP Pulse Ox 36.4 C L 71 18 81/45 L 93 10/01/18 14:30 10/01/18 14:30 10/01/18 14:30 10/01/18 14:38 10/01/18 14:30 Oxygen Flow Rate (L/min) [ 2 AMBULATION with Oxygen] Oxygen Flow Rate (L/min) [At 0 REST on Room Air] Oxygen Flow Rate (L/min) 2 Oxygen Delivery Method Nasal Cannula Weight: 102.2 kg Body Mass Index (BMI) 34.2 Intake and Output for Last 24 Hours 09/29/18 09/30/18 10/01/18 23:59 23:59 23:59 Intake Total 840 / 840 1080 / 1080 982 / 982 Output Total 700 / 700 755 / 755 550 / 550 Balance 140 / 140 325 / 325 432 / 432 Microbiology Past 72 Hours 09/27/18 23:00 Respiratory Panel (PCR) - Final Mucosa - Nasopharyngeal Laboratory Tests Past 24 Hrs 10/01/18 10/01/18 10/01/18 05:25 05:25 05:25 WBC 10.6 RBC 5.02 Hgb 17.1 H Hct 53.4 MCV 106.4 H MCH 34.1 H MCHC 32.0 RDW 12.9 RDW Differential 50.1 H Plt Count 162 MPV 10.9 Immature Gran % (Auto) 0.200 Neut % (Auto) 67.7 Lymph % (Auto) 20.6 [place] % (Auto) 10.3 H Eos % (Auto) 1.0 Baso % (Auto) 0.2 Absolute Neuts (auto) 7.2 Absolute Lymphs (auto) 2.19 Total Counted Not Reportable PT 14.3 INR 1.1 APTT 27.0 Sodium 140 Potassium 4.4 Chloride 100 Carbon Dioxide 33.0 H Anion Gap 7 BUN 32 H Creatinine 1.02 Estim Creat Clear Calc 71.72 Est GFR (MDRD) Af Amer 95 Est GFR (MDRD) Non-Af 78 BUN/Creatinine Ratio 31.4 H Glucose 85 Calcium 9.4 Discharge Diet: Low fat/ Low Cholesterol Discharge Activity: Return to Normal Activity Call your doctor if you observe: Shortness of breath, Dizziness, Fainting spells Disposition: Home Patient Condition:: Stable Medical Necessity - Tobacco Use Smoking Status: Former smoker Meaningful Use Info Meaningful Use Diagnoses (Choose all that apply): CHF - CHF VLADISLAV/ARB ordered at discharge?: Yes Documented LVEF (%): 45 Code Visit Inpatient E&M: 98280 Disch Hosp
--- NOTE | 2018-10-01 13:36 | CASEMGMT ---
Addendum entered by Wendie Grey 10/01/18 14:23: F2F faxed to [facility] at this time and call to [facility] to notify of pt discharge and verify fax received. Shana states that they will be over shortly with a tank for pt. Erin CUADRA CM Original Note: Per Naun CUADRA, pt does qualify for home oxygen at this time and pt would like to use [facility] as he already has cpap thru them. Referral faxed to [facility] at this time and F2F will be faxed once obtained. Pt states no further discharge planning/needs at this time. Pt voice no further questions/concerns/needs at this time. Erin CUADRA CM
--- NOTE | 2018-10-01 13:37 | DS.PCM_ITS ---
<Shira Villalobos - Last Filed: 10/01/18 13:45> Discharge Date and Diagnosis Date of Admission: 09/27/18 Date of Discharge: 10/01/18 - Primary Discharge Diagnosis Active and Suspected Problems (Last Updated 10/01/18 @ 10:28 by Katarzyna Mac) 1. Acute hypoxic respiratory failure secondary to CHF exacerbation and acute bronchitis 2. Acute on chronic combined systolic and diastolic CHF 3. Suspected viral URI/acute viral bronchitis 3. Intermittent bradycardia/frequent PVCs/inverted T wave on EKG 4. CAD status post stents 5. Hypertension 6. Obstructive sleep apnea 7. History of tobacco use 8. Obesity - Secondary Discharge Diagnosis Chronic Problems (Last Updated 10/01/18 @ 10:28 by Katarzyna Mac) Ischemic cardiomyopathy (Chronic) EF 45% per [facility] 10/01/2018 Atherosclerotic heart disease of [place] coronary artery without angina pectoris (Chronic) Hx of stents to LAD and LCX Hypertension (Chronic) History of left heart catheterization (Chronic 10/01/18) Widely patent LAD and LCX stents, Global LV systolic dysfunction- Moderate. LVEF: by LV gram 45 % Per DJN @ [facility] 10/01/2018 Hospital Course and Treatment Imaging Results: Diagnostic Data Chest X-Ray 09/27/18 13:04 IMPRESSION: Moderate degree of cardiomegaly. Findings in keeping with the vascular congestion and mild CHF. Electronically Signed: Galen Duran, at 13:22 EDT , Service support , Dr. Elaine- Cardiology Operations: None Procedures: 2-D Echocardiogram, Cardiac catheterization, Stress test Summary of Care Provided: The patient is a 63 year old M admitted 09/27/2018 due to shortness of breath and URI symptoms. 1. Acute hypoxic respiratory failure secondary to CHF exacerbation and acute bronchitis-patient continues to require supplemental oxygen at discharge. Continue supplement oxygen to maintain O2 sat above 90%. Patient is ambulatory in the home. 2. Acute on chronic combined systolic and diastolic CHF-chest x-ray admission consistent with CHF. BNP mildly elevated. Home Lasix regimen increased to 40 mg daily. Continue lisinopril regimen. Vladislav wraps bilateral lower extremities. Echocardiogram shows an EF of 45-50%, stage I diastolic dysfunction, frequent PVCs, mild to moderate global hypokinesis of the left ventricle, severely dilated right ventricle, moderate global right ventricular systolic dysfunction, RVSP estimated to be 70 mmHg. 3. Suspected viral URI/acute viral bronchitis-he recently completed outpatient antibiotics with no improvement. Influenza testing negative. Respiratory panel negative. Chest x-ray consistent with CHF/vascular congestion. Urine for strep and Legionella negative. No leukocytosis, afebrile. Albuterol DuoNeb aerosols. Prednisone taper at discharge. Further antibiotics discontinued. Follow-up with pulmonary medicine as outpatient for suspected COPD. 3. Intermittent bradycardia/frequent PVCs/inverted T wave on EKG/NVT-no previous EKG for comparison. Patient denies chest pain. He denies shortness of breath prior to recent URI. Stress test this morning mildly abnormal. Cardiac catheterization 10/01/2018 with nonobstructive coronary arteries. Frequent PVCs likely secondary to acute viral illness. 4. CAD status post stents-continue aspirin, statin, Plavix, beta-francisca. Previously followed with manager water wastewater at [facility], Dr. Gao. Patient is switching to Dr. Browne and has upcoming appointment 10/31/18. Patient reports his stents were placed approximately 4 years ago. Cardiac catheterization 10/01/2018 with nonobstructive coronary arteries. Continue medical management. Follow-up with cardiology in 1-2 weeks. 5. Hypertension-stable, continue home metoprolol, lisinopril, furosemide regimen. 6. Obstructive sleep apnea-continue CPAP nightly. 7. History of tobacco use-suspect patient has underlying COPD given extensive smoking history. Recommend outpatient follow-up with pulmonary medicine for pulmonary function testing. Refer to Dr. Sanford in 1-2 weeks. 8. Obesity-encouraged diet lifestyle modifications. General: Alert, Oriented x3, Cooperative HEENT: Atraumatic, PERRLA, EOMI, Normocephalic Neck: Supple, No JVD, Negative Carotid Bruits Lungs: Clear to auscultation, Diminished Cardiovascular: Regular rate, Regular Rhythm, Normal S1, Normal S2, No murmurs Abdomen: Bowel Sounds Present, Soft, Non Tender, Non-Distended Extremities: No clubbing, No cyanosis, No edema, Capillary Refill Less than 3 Seconds Skin: No rashes, No breakdown Musculoskeletal: No Tenderness to Palpation of Joints or Extremities Neurological: Cranial nerves II-XII grossly intact, Neuro grossly intact Psych/Mental Status: Normal Affect, Appropriate Patient seen and examined prior to discharge. Physical assessment as noted above. Patient is stable for discharge with follow up recommendations as noted above. This patient was seen by JUNIOR Ureña under the supervision of Dr. Zaragoza. - Physical Exam Vital Signs Temp Pulse Resp BP Pulse Ox 98.6 F 72 16 100/68 86 10/01/18 12:30 10/01/18 12:30 10/01/18 12:30 10/01/18 12:30 10/01/18 12:56 Oxygen Flow Rate (L/min) [ 2 AMBULATION with Oxygen] Oxygen Flow Rate (L/min) [At 0 REST on Room Air] Oxygen Flow Rate (L/min) 2 Oxygen Delivery Method Nasal Cannula Weight: 225 lb 4.999 oz Body Mass Index (BMI) 34.2 Intake and Output for Last 24 Hours 09/29/18 09/30/18 10/01/18 23:59 23:59 23:59 Intake Total 840 / 840 1080 / 1080 982 / 982 Output Total 700 / 700 755 / 755 550 / 550 Balance 140 / 140 325 / 325 432 / 432 Microbiology Past 72 Hours 09/27/18 23:00 Respiratory Panel (PCR) - Final Mucosa - Nasopharyngeal Laboratory Tests Past 24 Hrs 10/01/18 10/01/18 10/01/18 05:25 05:25 05:25 WBC 10.6 RBC 5.02 Hgb 17.1 H Hct 53.4 MCV 106.4 H MCH 34.1 H MCHC 32.0 RDW 12.9 RDW Differential 50.1 H Plt Count 162 MPV 10.9 Immature Gran % (Auto) 0.200 Neut % (Auto) 67.7 Lymph % (Auto) 20.6 Curry % (Auto) 10.3 H Eos % (Auto) 1.0 Baso % (Auto) 0.2 Absolute Neuts (auto) 7.2 Absolute Lymphs (auto) 2.19 Total Counted Not Reportable PT 14.3 INR 1.1 APTT 27.0 Sodium 140 Potassium 4.4 Chloride 100 Carbon Dioxide 33.0 H Anion Gap 7 BUN 32 H Creatinine 1.02 Estim Creat Clear Calc 71.72 Est GFR (MDRD) Af Amer 95 Est GFR (MDRD) Non-Af 78 BUN/Creatinine Ratio 31.4 H Glucose 85 Calcium 9.4 Discharge Diet: Low fat/ Low Cholesterol Discharge Activity: Return to Normal Activity Call your doctor if you observe: Shortness of breath, Dizziness, Fainting spells, Chest pain Home Medications: Medications to take at Discharge Aspirin [Aspirin EC] 81 mg PO DAILY 09/27/18 Atorvastatin Calcium [Lipitor] 40 mg PO QHS 09/27/18 Clopidogrel Bisulfate [Clopidogrel] 75 mg PO DAILY 09/27/18 Codeine Phosphate/Guaifenesin [Guaiatussin AC Liquid] 5 ml PO Q6H PRN PRN 09/27/18 Lisinopril [Zestril] 10 mg PO DAILY 09/27/18 Metoprolol Tartrate [Lopressor (beta francisca)] 25 mg PO BID 09/27/18 Albuterol Inhaler [Ventolin Hfa] 1 - 2 puff INHALATION Q4H PRN PRN #1 inhaler 10/01/18 Furosemide [Lasix] 40 mg PO DAILY #30 tablet 10/01/18 Prednisone See Taper PO DAILY #18 tablet 10/01/18 Following Prescrptions Were Given to Patient: Albuterol Inhaler [Ventolin Hfa] 1 - 2 puff INHALATION Q4H PRN PRN #1 inhaler PRN Reason: Shortness Of Breath Furosemide [Lasix] 40 mg PO DAILY #30 tablet Prednisone See Taper PO DAILY #18 tablet Primary Care Physician: NOT,DEFINED [NON-STAFF] - Please Follow Up With: Olivier Vanegas When: PCP, 1 Week Please Follow Up With: Wyatt Browne MD When: 1-2 Weeks Please Follow Up With: Tyrone Sanford MD When: 1-2 Weeks, workup for COPD Disposition: Home Minutes spent on discharge:: 35 Patient Condition:: Stable Medical Necessity - Tobacco Use Smoking Status: Former smoker Meaningful Use Info Meaningful Use Diagnoses (Choose all that apply): CHF - CHF VLADISLAV/ARB ordered at discharge?: Yes Documented LVEF (%): 45 <Ravinder Zaragoza - Last Filed: 10/01/18 16:26> Discharge Date and Diagnosis - Secondary Discharge Diagnosis Chronic Problems (Last Updated 10/01/18 @ 13:26 by JUNIOR Ureña) Ischemic cardiomyopathy (Chronic) EF 45% per [facility] 10/01/2018 Atherosclerotic heart disease of [place] coronary artery without angina pectoris (Chronic) Hx of stents to LAD and LCX Hypertension (Chronic) History of left heart catheterization (Chronic 10/01/18) Widely patent LAD and LCX stents, Global LV systolic dysfunction- Moderate. LVEF: by LV gram 45 % Per DJN @ [facility] 10/01/2018 Hospital Course and Treatment Operations: None Procedures: 2-D Echocardiogram, Cardiac catheterization, Stress test Summary of Care Provided: Patient seen and examined independently. Data reviewed. I agree with the above note by the nurse practitioner. The patient is a 63 year old M presents with shortness of breath. Secondary to acute heart failure plus bronchitis. Patient had an echocardiogram that showed an ejection fraction of 45-50%. Patient was diuresed and then transition over to oral Lasix. Comp gated by pulmonary hypertension, likely group 2 due to cardiac etiology with estimated right ventricular systolic pressure of 70 mmHg. Patient underwent a left heart catheterization that showed normal coronaries. Overall patient is doing well. Patient advised to follow-up with pulmonology as well as cardiology as outpatient. [] - Physical Exam General: Alert, No apparent distress HEENT: Atraumatic, Normocephalic Neck: No Nodes, Thyroid Normal Size and Texture Lungs: Clear to auscultation, Normal air movement, No rhonchi, No wheeze Cardiovascular: Regular rate, Regular Rhythm, Normal S1, Normal S2 Abdomen: Bowel Sounds Present, Soft, Non Tender, Non-Distended, No Hepato- splenomegaly Extremities: No edema, No Calf Tenderness Skin: No rashes, No breakdown Psych/Mental Status: Normal Affect, Appropriate Vital Signs Temp Pulse Resp BP Pulse Ox 36.4 C L 71 18 81/45 L 93 10/01/18 14:30 10/01/18 14:30 10/01/18 14:30 10/01/18 14:38 10/01/18 14:30 Oxygen Flow Rate (L/min) [ 2 AMBULATION with Oxygen] Oxygen Flow Rate (L/min) [At 0 REST on Room Air] Oxygen Flow Rate (L/min) 2 Oxygen Delivery Method Nasal Cannula Weight: 102.2 kg Body Mass Index (BMI) 34.2 Intake and Output for Last 24 Hours 09/29/18 09/30/18 10/01/18 23:59 23:59 23:59 Intake Total 840 / 840 1080 / 1080 982 / 982 Output Total 700 / 700 755 / 755 550 / 550 Balance 140 / 140 325 / 325 432 / 432 Microbiology Past 72 Hours 09/27/18 23:00 Respiratory Panel (PCR) - Final Mucosa - Nasopharyngeal Laboratory Tests Past 24 Hrs 10/01/18 10/01/18 10/01/18 05:25 05:25 05:25 WBC 10.6 RBC 5.02 Hgb 17.1 H Hct 53.4 MCV 106.4 H MCH 34.1 H MCHC 32.0 RDW 12.9 RDW Differential 50.1 H Plt Count 162 MPV 10.9 Immature Gran % (Auto) 0.200 Neut % (Auto) 67.7 Lymph % (Auto) 20.6 Curry % (Auto) 10.3 H Eos % (Auto) 1.0 Baso % (Auto) 0.2 Absolute Neuts (auto) 7.2 Absolute Lymphs (auto) 2.19 Total Counted Not Reportable PT 14.3 INR 1.1 APTT 27.0 Sodium 140 Potassium 4.4 Chloride 100 Carbon Dioxide 33.0 H Anion Gap 7 BUN 32 H Creatinine 1.02 Estim Creat Clear Calc 71.72 Est GFR (MDRD) Af Amer 95 Est GFR (MDRD) Non-Af 78 BUN/Creatinine Ratio 31.4 H Glucose 85 Calcium 9.4 Discharge Diet: Low fat/ Low Cholesterol Discharge Activity: Return to Normal Activity Call your doctor if you observe: Shortness of breath, Dizziness, Fainting spells Disposition: Home Patient Condition:: Stable Medical Necessity - Tobacco Use Smoking Status: Former smoker Meaningful Use Info Meaningful Use Diagnoses (Choose all that apply): CHF - CHF VLADISLAV/ARB ordered at discharge?: Yes Documented LVEF (%): 45 Code Visit Inpatient E&M: 30551 Disch Hosp
== END 2018-10-01 15:11 | disposition home or self-care (01) | DRG 286 ==
LOC: ED 13:57 → PCU 14:18
PROVIDERS: Internal Medicine Cardiovascular Disease; Nurse Practitioner Family; Admitting Provider Internal Medicine; Emergency Provider Emergency Medicine; Family Provider Family Medicine; PCP Family Medicine
DX: I11.0 Hypertensive heart disease with heart failure (principal); J96.01 Acute respiratory failure with hypoxia; I50.43 Acute on chronic combined systolic (congestive) and diastolic (congestive) heart failure; I25.10 Atherosclerotic heart disease of native coronary artery without angina pectoris; G47.33 Obstructive sleep apnea (adult) (pediatric); E66.9 Obesity, unspecified; J20.8 Acute bronchitis due to other specified organisms; J06.9 Acute upper respiratory infection, unspecified; B97.89 Other viral agents as the cause of diseases classified elsewhere; R00.1 Bradycardia, unspecified; I49.3 Ventricular premature depolarization; I25.5 Ischemic cardiomyopathy; I27.22 Pulmonary hypertension due to left heart disease; Z95.5 Presence of coronary angioplasty implant and graft; Z87.891 Personal history of nicotine dependence; Z68.34 Body mass index [BMI] 34.0-34.9, adult
CPT/HCPCS: 36415; 71046; 78452; 80048; 80061; 81002; 83036; 83735; 83880; 84443; 84484; 85025; 85610; 85730; 87449; 87633; 87804; 93005; 93017; 93306; 93458; 94640; 94660; 97802; 99152; 99283; A9500; J7030; A4216; C1769; C1894; J1940; J2785; Q9967

== ENCOUNTER → 2018-10-21 11:50 | Outpatient (CLI) | payer OTHER, SELFPAY ==
[2018-10-15 14:16] VITALS: BMI 34.7
== END ==
PROVIDERS: Family Provider Family Medicine; PCP Family Medicine; Referring Provider Physician Assistant Medical; Visit Provider Physician Assistant Medical
DX: I10 Essential (primary) hypertension (principal); I25.10 Atherosclerotic heart disease of native coronary artery without angina pectoris; I25.5 Ischemic cardiomyopathy; I49.3 Ventricular premature depolarization
CPT/HCPCS: 93225; 93226

== ENCOUNTER → 2018-11-08 | Outpatient (CLI) | payer OTHER, SELFPAY ==
[2018-10-08 14:14] VITALS: BMI 35.6
[2018-10-31 11:14] VITALS: BMI 34.7
--- NOTE | 2018-11-09 08:13 | PFT ---
INTRODUCTION: The patient is a 63-year-old male that presents for pulmonary function studies secondary to a diagnosis of dyspnea. Respiratory therapy reports good patient effort. Bronchodilators were used during testing. INTERPRETATION: Forced expiration spirometry demonstrates the presence of a severe large airways obstructive ventilatory defect. There was no significant response to aerosolized bronchodilators, based upon strict ATS criteria. Spirograms are of good quality and do not plateau indicating slow emptying of the lungs. Body plethysmography was performed and reveals an elevated RV to 130% of predicted, indicative of underlying air trapping. Diffusing capacity by single breath CO is reduced at 58% of predicted. IMPRESSION: Irreversible severe large airways obstructive ventilatory defect with associated air trapping and reduction in diffusing capacity.
== END | disposition home or self-care (01) ==
LOC: PSN 13:01
PROVIDERS: Family Provider Family Medicine; PCP Family Medicine; Referring Provider Internal Medicine Critical Care Medicine; Visit Provider Internal Medicine Critical Care Medicine
DX: R06.09 Other forms of dyspnea (principal)
CPT/HCPCS: 94060; 94726; 94729

== ENCOUNTER → 2018-11-11 | Outpatient (CLI) | payer OTHER, SELFPAY ==
[2018-10-08 14:14] VITALS: BMI 35.6
[2018-10-31 11:14] VITALS: BMI 34.7
[2018-11-11 12:30] VITALS: PULSE 67; PULSE 69; PULSE 78; PULSE 84; PULSE 85; O2SAT 88; O2SAT 89; O2SAT 90; O2SAT 91; O2SAT 92; O2SAT 93; O2SAT 94
--- NOTE | 2018-11-11 13:04 | CPS ---
PT ARRIVED ON ROOM AIR. PATIENT TOLD ME HE HAD HOME CPAP WITH O2 BLEED IN. WAS NOT SURE OF THE AMOUNT OF O2 HE HAS BLEED IN. AT MINUTE 5 SATS DROPPED TO 88% ON ROOM AIR. PLACED PT ON 1L NC. SATS INCREASED TO 93% ON 1L.
--- NOTE | 2018-11-11 14:29 | PCM.PSN.6M ---
PSN 6 Minute Walk Test - 6 Minute Walk Test 6 Minute Walk Test: 6 Minute Walk Test PSN:6-Minute Walk Test Start: 11/11/18 13:00 Freq: Status: Active Protocol: [id number] Document 11/11/18 12:30 EW (Rec: 11/11/18 13:05 EW [id number]) 6 Minute Walk Test Date Performed 11/11/18 Time Performed 12:30 Height 5 ft 8 in Weight: 104.326 kg Weight in Pounds 230.[address]: Tyrone Sanford Assistive device used: None Pre-test Oxygen Delivery Method Room Air Pulse Ox (%) 94 Pulse Rate (60-100 beats/min) 67 Dyspnea Roselyn Scale (0-10) 2 Exertion Roselyn Scale (6-20) 8 1st minute Oxygen Delivery Method Room Air Pulse Ox (%) 92 Pulse Rate (60-100 beats/min) 78 2nd minute Oxygen Delivery Method Room Air Pulse Ox (%) 91 Pulse Rate (60-100 beats/min) 85 3rd minute Oxygen Delivery Method Room Air Pulse Ox (%) 90 Pulse Rate (60-100 beats/min) 84 4th minute Oxygen Delivery Method Room Air Pulse Ox (%) 89 Pulse Rate (60-100 beats/min) 85 5th minute Oxygen Delivery Method Room Air Pulse Ox (%) 88 Pulse Rate (60-100 beats/min) 85 6th minute Oxygen Flow Rate (L/min) (L/min) 1 Oxygen Delivery Method Nasal Cannula Pulse Ox (%) 93 Pulse Rate (60-100 beats/min) 85 Post-test Oxygen Delivery Method Room Air Pulse Ox (%) 93 Pulse Rate (60-100 beats/min) 69 Dyspnea Roselyn Scale (0-10) 3 Exertion Roselyn Scale (6-20) 13 Full Laps Walked 18 Partial Lap, Number of Tiles Walked 17 Total Distance Walked (ft) 1079 11/11/18 13:04 Cardiopulmonary Services by Tatum Alba PT ARRIVED ON ROOM AIR. PATIENT TOLD ME HE HAD HOME CPAP WITH O2 BLEED IN. WAS NOT SURE OF THE AMOUNT OF O2 HE HAS BLEED IN. AT MINUTE 5 SATS DROPPED TO 88% ON ROOM AIR. PLACED PT ON 1L NC. SATS INCREASED TO 93% ON 1L. Initialized on 11/11/18 13:04 - END OF NOTE - Interpretation Interpretation: The patient was noted to be 94% on room air. The patient did have significant desaturation with ambulation and in the fifth minute was noted to be 88%. Patient was placed on 1 L nasal cannula and was able to complete testing. In total, the patient traveled 1079 feet over the course of 6 minutes with no assistive devices or breaks. These findings are consistent with a respiratory limitation exercise tolerance. - Recommendations Recommendations: Patient requires no supplemental oxygen at rest, but should be using 1 L nasal cannula with any exertion.
== END | disposition home or self-care (01) ==
LOC: PSN 12:34
PROVIDERS: Family Provider Family Medicine; PCP Family Medicine; Referring Provider Internal Medicine Critical Care Medicine; Visit Provider Internal Medicine Critical Care Medicine
DX: R06.09 Other forms of dyspnea (principal)
CPT/HCPCS: 94618

== ENCOUNTER → 2018-11-22 | Outpatient (CLI) | payer OTHER, SELFPAY ==
[2018-10-08 14:14] VITALS: BMI 35.6
== END | disposition home or self-care (01) ==
LOC: SL 20:29
PROVIDERS: Family Provider Family Medicine; PCP Family Medicine; Referring Provider Internal Medicine Critical Care Medicine; Visit Provider Internal Medicine Critical Care Medicine
DX: G47.33 Obstructive sleep apnea (adult) (pediatric) (principal)
CPT/HCPCS: 95811